=== PATIENT | male | born 1935 | race Caucasian/White ===

== ENCOUNTER 2018-11-09 15:59 | Inpatient (IN) ==
[2018-11-09] MEDS ORDERED: ASPIRIN 325 MG TABLET PO STA (16:35)
[2018-11-09 16:49] LABS: Basophils % 0.5 % (0.0-0.8); Eosinophils # 0.1 10*3/uL (0.0-0.87); Eosinophils % 1.7 % (0.00-10.9); Hematocrit 33.9 VOL% (42.0-52.0); Hemoglobin 11.4 GM/DL (14.0-18.0); Immature Granulocytes % 0.4 %; Immature Granulocytes Absolute 0.03 #; Lymphocytes # 2.2 10*3/uL (1.4-4.0); Lymphocytes % 27.9 % (21.2-54.2); Mean Corpuscular HGB Conc 33.6 GM/DL (32-36); Mean Corpuscular Volume 97.1 FL (87-102); Monocytes % 8.6 % (1.7-12.7); Neutrophils % 60.9 % (38.7-73.9); Platelet Count 280 T/CUMM (130-400); Red Blood Count 3.49 MC/CUMM (3.8-5.5); Red Cell Distribution Width 12.6 % (9.3-17.3); White Blood Count 7.8 T/CUMM (4-12)
[2018-11-09 16:56] LABS: PT Patient Result 10.6 SECS
[2018-11-09 17:25] LABS: Albumin 3.3 G/DL (3.4-5.0); Calcium 9.8 MG/DL (8.5-10.1); Osmolality,Calculated 286.1 MOS/KG (273-304); Thyroid Stimulating Hormone 3.27 uIU/ml (0.358-3.74); Total Protein 8.4 G/DL (6.4-8.3)
[2018-11-09] MEDS ORDERED: MOMETASONE 0.1% OINT 15 GM TUBE TOP PRN (19:55)
[2018-11-09] MEDS ORDERED: ACETAMINOPHEN 325 MG TABLET PO PRN (19:55)
[2018-11-09] MEDS ORDERED: traMADol 50 MG TABLET PO PRN (19:55)
[2018-11-09] MEDS ORDERED: hydrOXYzine HCL 25 MG TABLET PO PRN (19:55)
[2018-11-09] MEDS ORDERED: ONDANSETRON 4 MG/2 ML VIAL IV PRN (19:55)
[2018-11-09] MEDS ORDERED: ALBUTEROL 2.5 MG/3 ML NEB RESP TX PRN (19:55)
[2018-11-09 21:34] LABS: Albumin 2.8 G/DL (3.4-5.0); Bilirubin,Total 0.9 MG/DL (0.2-1.0); Calcium 8.8 MG/DL (8.5-10.1); Osmolality,Calculated 284.3 MOS/KG (273-304); Total Protein 7.1 G/DL (6.4-8.3)
[2018-11-09] MEDS: SODIUM CHLORIDE 0.9% 1,000 ML IV SCH (21:35)
[2018-11-09] MEDS: GABAPENTIN 600 MG TABLET PO SCH (21:36)
[2018-11-09] MEDS: NABUMETONE 500 MG TABLET PO SCH (21:36)
[2018-11-09] MEDS: DOCUSATE SODIUM 100 MG CAPSULE PO SCH (21:36)
[2018-11-09] MEDS: PREGABALIN 75 MG CAPSULE PO SCH (21:36)
[2018-11-09] MEDS: DONEPEZIL 10 MG TABLET PO SCH ×2 (21:36→21:37)
[2018-11-09] MEDS: DIPYRIDAMOLE 25 MG TABLET PO SCH (21:37)
[2018-11-09] MEDS: NIACIN 500 MG TABLET PO SCH (21:39)
[2018-11-09] MEDS: MEMANTINE 10 MG TABLET PO SCH (21:39)
[2018-11-10 05:07] LABS: Basophils % 0.4 % (0.0-0.8); Eosinophils # 0.2 10*3/uL (0.0-0.87); Eosinophils % 2.6 % (0.00-10.9); Hematocrit 29.5 VOL% (42.0-52.0); Hemoglobin 9.9 GM/DL (14.0-18.0); Immature Granulocytes % 0.4 %; Immature Granulocytes Absolute 0.03 #; Lymphocytes % 27.3 % (21.2-54.2); Mean Corpuscular HGB Conc 33.6 GM/DL (32-36); Mean Corpuscular Volume 97.7 FL (87-102); Mean Platelet Volume 9.4 FL (9.6-12.0); Monocytes % 8.2 % (1.7-12.7); Neutrophils % 61.1 % (38.7-73.9); Platelet Count 239 T/CUMM (130-400); Red Blood Count 3.02 MC/CUMM (3.8-5.5); Red Cell Distribution Width 12.6 % (9.3-17.3); White Blood Count 7.4 T/CUMM (4-12)
[2018-11-10 05:32] LABS: Risk Ratio 2.43; VLDL CHOLESTEROL 11.6 MG/DL
[2018-11-10] MEDS ORDERED: MAGNESIUM SULF RIDER 2 GM in PREMIX 1 EACH IV PRN (08:27)
[2018-11-10] MEDS ORDERED: ASPIRIN EC 81 MG TABLET PO SCH (09:00)
[2018-11-10] MEDS: DIPYRIDAMOLE 25 MG TABLET PO SCH ×2 (10:05→21:11)
[2018-11-10] MEDS: DONEPEZIL 10 MG TABLET PO SCH ×3 (10:06→21:12)
[2018-11-10] MEDS: ACYCLOVIR 200 MG CAPSULE PO SCH (10:06)
[2018-11-10] MEDS: CITALOPRAM 20 MG TABLET PO SCH (10:06)
[2018-11-10] MEDS: PREGABALIN 75 MG CAPSULE PO SCH ×2 (10:06→21:10)
[2018-11-10] MEDS: MEMANTINE 10 MG TABLET PO SCH ×2 (10:07→21:10)
[2018-11-10] MEDS: POTASSIUM CHLORIDE 10 MEQ TABLET PO SCH ×2 (10:07→17:43)
[2018-11-10] MEDS: GABAPENTIN 600 MG TABLET PO SCH ×4 (10:07→21:10)
[2018-11-10] MEDS: NABUMETONE 500 MG TABLET PO SCH ×2 (10:07→21:10)
[2018-11-10] MEDS: DULoxetine 30 MG CAPSULE PO SCH (10:07)
[2018-11-10] MEDS: ASPIRIN EC 81 MG TABLET PO SCH (10:07)
[2018-11-10] MEDS: DOCUSATE SODIUM 100 MG CAPSULE PO SCH ×2 (10:07→21:10)
[2018-11-10] MEDS: INDAPAMIDE 2.5 MG TABLET PO SCH (10:25)
[2018-11-10] MEDS: POTASSIUM CHLORIDE RIDER 10 MEQ in PREMIX 1 EACH IV SCH ×2 (10:25→12:42)
[2018-11-10] MEDS: PANTOPRAZOLE 40 MG TABLET PO SCH (10:26)
[2018-11-10] MEDS: SIMVASTATIN 20 MG TABLET PO SCH (10:26)
[2018-11-10 13:02] LABS: Apearance,Urine Slightly Hazy (Clear); Bilirubin,Urine Negative (Negative); Blood, Urine Negative (Negative); Glucose,Urine (UA) Negative (Negative); Ketones,Urine Negative (Negative); Mucus,Urine Occasional /LPF (Occasional); Nitrite,Urine Negative (Negative); Protein,Urine Negative; RBC,Urine 1 /HPF (0-4); Squamous Epithelial Cell,Urine Occasional /HPF (0-10); Urine Color Yellow (Yellow); Urine Specific Gravity 1.014 (1.001-1.035); Urine Urobilinogen < 2.0 EU/DL (0.2-1.0); WBC,Urine 1 /HPF (0-6)
[2018-11-10] MEDS: HALOPERIDOL 5 MG/ML AMP IM PRN (21:08)
[2018-11-10] MEDS: POTASSIUM CHLORIDE IV SCH (21:13)
[2018-11-10] MEDS: MAGNESIUM SULF IV SCH (21:13)
[2018-11-10] MEDS: SODIUM CHLORIDE 0.9% IV SCH (21:13)
[2018-11-10] MEDS: NIACIN 500 MG TABLET PO SCH (21:15)
[2018-11-10] MEDS: SODIUM CHLORIDE 0.9% 1,000 ML IV SCH (21:16)
[2018-11-11] MEDS: HALOPERIDOL 5 MG/ML AMP IM PRN (01:12)
[2018-11-11 05:14] LABS: Basophils # 0.1 10*3/uL (0.0-0.2); Basophils % 0.7 % (0.0-0.8); Eosinophils # 0.3 10*3/uL (0.0-0.87); Eosinophils % 3.6 % (0.00-10.9); Hematocrit 33.6 VOL% (42.0-52.0); Hemoglobin 11.3 GM/DL (14.0-18.0); Immature Granulocytes % 0.2 %; Immature Granulocytes Absolute 0.02 #; Lymphocytes # 3.4 10*3/uL (1.4-4.0); Lymphocytes % 39.3 % (21.2-54.2); Mean Corpuscular HGB Conc 33.6 GM/DL (32-36); Mean Corpuscular Volume 97.7 FL (87-102); Mean Platelet Volume 9.5 FL (9.6-12.0); Monocytes % 7.6 % (1.7-12.7); Neutrophils % 48.6 % (38.7-73.9); Platelet Count 271 T/CUMM (130-400); Red Blood Count 3.44 MC/CUMM (3.8-5.5); Red Cell Distribution Width 12.6 % (9.3-17.3); White Blood Count 8.7 T/CUMM (4-12)
[2018-11-11 05:48] LABS: Bilirubin,Total 0.7 MG/DL (0.2-1.0); Calcium 9.4 MG/DL (8.5-10.1); Osmolality,Calculated 282.4 MOS/KG (273-304); Total Protein 7.8 G/DL (6.4-8.3)
[2018-11-11] MEDS: NABUMETONE 500 MG TABLET PO SCH ×2 (09:14→22:34)
[2018-11-11] MEDS: CITALOPRAM 20 MG TABLET PO SCH (09:14)
[2018-11-11] MEDS: DOCUSATE SODIUM 100 MG CAPSULE PO SCH ×2 (09:15→22:35)
[2018-11-11] MEDS: GABAPENTIN 600 MG TABLET PO SCH ×4 (09:15→22:33)
[2018-11-11] MEDS: POTASSIUM CHLORIDE 10 MEQ TABLET PO SCH ×2 (09:15→16:56)
[2018-11-11] MEDS: ACYCLOVIR 200 MG CAPSULE PO SCH (09:15)
[2018-11-11] MEDS: MEMANTINE 10 MG TABLET PO SCH ×2 (09:16→22:35)
[2018-11-11] MEDS: ASPIRIN EC 81 MG TABLET PO SCH (09:16)
[2018-11-11] MEDS: PANTOPRAZOLE 40 MG TABLET PO SCH (09:16)
[2018-11-11] MEDS: DIPYRIDAMOLE 25 MG TABLET PO SCH (09:16)
[2018-11-11] MEDS: DULoxetine 30 MG CAPSULE PO SCH (09:16)
[2018-11-11] MEDS: INDAPAMIDE 2.5 MG TABLET PO SCH (09:16)
[2018-11-11] MEDS: SIMVASTATIN 20 MG TABLET PO SCH (09:16)
[2018-11-11] MEDS: PREGABALIN 75 MG CAPSULE PO SCH ×2 (09:16→22:36)
[2018-11-11] MEDS: DONEPEZIL 10 MG TABLET PO SCH ×3 (09:16→22:45)
[2018-11-11] MEDS ORDERED: LORazepam 2 MG/1 ML VIAL IV ONE (09:41)
[2018-11-11] MEDS: SODIUM CHLORIDE 0.9% IV SCH ×2 (11:41→22:47)
[2018-11-11] MEDS: POTASSIUM CHLORIDE IV SCH ×2 (11:41→22:47)
[2018-11-11] MEDS: MAGNESIUM SULF IV SCH ×2 (11:41→22:47)
[2018-11-11] MEDS ORDERED: DIPYRIDAMOLE 50 MG TABLET PO SCH (21:00)
[2018-11-11] MEDS: NIACIN 500 MG TABLET PO SCH (22:35)
[2018-11-12] MEDS: SODIUM CHLORIDE 0.9% IV SCH ×3 (06:41→22:54)
[2018-11-12] MEDS: POTASSIUM CHLORIDE IV SCH ×3 (06:41→22:54)
[2018-11-12] MEDS: MAGNESIUM SULF IV SCH ×3 (06:41→22:54)
[2018-11-12 06:51] LABS: Basophils % 0.5 % (0.0-0.8); Eosinophils # 0.1 10*3/uL (0.0-0.87); Eosinophils % 1.4 % (0.00-10.9); Hematocrit 32.4 VOL% (42.0-52.0); Immature Granulocytes % 0.4 %; Immature Granulocytes Absolute 0.03 #; Lymphocytes % 25.4 % (21.2-54.2); Mean Corpuscular Volume 97.6 FL (87-102); Mean Platelet Volume 9.6 FL (9.6-12.0); Monocytes % 7.4 % (1.7-12.7); Neutrophils % 64.9 % (38.7-73.9); Platelet Count 259 T/CUMM (130-400); Red Blood Count 3.32 MC/CUMM (3.8-5.5); Red Cell Distribution Width 12.7 % (9.3-17.3); White Blood Count 7.8 T/CUMM (4-12)
[2018-11-12 07:20] LABS: Calcium 9.2 MG/DL (8.5-10.1); Osmolality,Calculated 283.3 MOS/KG (273-304)
[2018-11-12] MEDS: ASPIRIN EC 81 MG TABLET PO SCH (09:41)
[2018-11-12] MEDS: CITALOPRAM 20 MG TABLET PO SCH (09:41)
[2018-11-12] MEDS: PREGABALIN 75 MG CAPSULE PO SCH ×2 (09:41→21:25)
[2018-11-12] MEDS: DOCUSATE SODIUM 100 MG CAPSULE PO SCH ×2 (09:42→21:30)
[2018-11-12] MEDS: GABAPENTIN 600 MG TABLET PO SCH ×4 (09:42→21:29)
[2018-11-12] MEDS: PANTOPRAZOLE 40 MG TABLET PO SCH (09:42)
[2018-11-12] MEDS: INDAPAMIDE 2.5 MG TABLET PO SCH (09:42)
[2018-11-12] MEDS: NABUMETONE 500 MG TABLET PO SCH ×2 (09:42→21:28)
[2018-11-12] MEDS: ACYCLOVIR 200 MG CAPSULE PO SCH (09:42)
[2018-11-12] MEDS: DULoxetine 30 MG CAPSULE PO SCH (09:42)
[2018-11-12] MEDS: SIMVASTATIN 20 MG TABLET PO SCH (09:42)
[2018-11-12] MEDS: DONEPEZIL 10 MG TABLET PO SCH ×3 (09:42→21:30)
[2018-11-12] MEDS: MEMANTINE 10 MG TABLET PO SCH ×2 (09:45→21:27)
[2018-11-12] MEDS: DIPYRIDAMOLE 25 MG TABLET PO SCH ×2 (09:45→21:25)
[2018-11-12] MEDS: POTASSIUM CHLORIDE 10 MEQ TABLET PO SCH ×2 (09:45→16:32)
[2018-11-12] MEDS: NIACIN 500 MG TABLET PO SCH (21:28)
[2018-11-13] MEDS: SODIUM CHLORIDE 0.9% IV SCH ×2 (02:18→15:37)
[2018-11-13] MEDS: MAGNESIUM SULF IV SCH ×2 (02:18→15:37)
[2018-11-13] MEDS: POTASSIUM CHLORIDE IV SCH ×2 (02:18→15:37)
[2018-11-13 06:24] LABS: Calcium 9.6 MG/DL (8.5-10.1); Osmolality,Calculated 273.8 MOS/KG (273-304)
[2018-11-13] MEDS: DULoxetine 30 MG CAPSULE PO SCH (09:14)
[2018-11-13] MEDS: DIPYRIDAMOLE 25 MG TABLET PO SCH ×2 (09:14→22:34)
[2018-11-13] MEDS: ASPIRIN EC 81 MG TABLET PO SCH (09:14)
[2018-11-13] MEDS: INDAPAMIDE 2.5 MG TABLET PO SCH (09:14)
[2018-11-13] MEDS: POTASSIUM CHLORIDE 10 MEQ TABLET PO SCH ×2 (09:15→17:14)
[2018-11-13] MEDS: MEMANTINE 10 MG TABLET PO SCH ×2 (09:15→22:35)
[2018-11-13] MEDS: DONEPEZIL 10 MG TABLET PO SCH ×3 (09:15→23:40)
[2018-11-13] MEDS: PANTOPRAZOLE 40 MG TABLET PO SCH (09:15)
[2018-11-13] MEDS: GABAPENTIN 600 MG TABLET PO SCH ×4 (09:15→22:36)
[2018-11-13] MEDS: CITALOPRAM 20 MG TABLET PO SCH (09:15)
[2018-11-13] MEDS: NABUMETONE 500 MG TABLET PO SCH ×2 (09:15→22:34)
[2018-11-13] MEDS: DOCUSATE SODIUM 100 MG CAPSULE PO SCH ×2 (09:15→22:35)
[2018-11-13] MEDS: PREGABALIN 75 MG CAPSULE PO SCH ×2 (09:16→22:37)
[2018-11-13] MEDS: SIMVASTATIN 20 MG TABLET PO SCH (10:31)
[2018-11-13] MEDS: ACYCLOVIR 200 MG CAPSULE PO SCH (10:31)
[2018-11-13] MEDS: NIACIN 500 MG TABLET PO SCH (22:37)
[2018-11-14] MEDS: MAGNESIUM SULF IV SCH ×2 (06:02→12:41)
[2018-11-14] MEDS: SODIUM CHLORIDE 0.9% IV SCH ×2 (06:02→12:41)
[2018-11-14] MEDS: POTASSIUM CHLORIDE IV SCH ×2 (06:02→12:41)
[2018-11-14] MEDS: CITALOPRAM 20 MG TABLET PO SCH (10:21)
[2018-11-14] MEDS: DONEPEZIL 10 MG TABLET PO SCH ×3 (10:22→22:57)
[2018-11-14] MEDS: ACYCLOVIR 200 MG CAPSULE PO SCH (10:22)
[2018-11-14] MEDS: MEMANTINE 10 MG TABLET PO SCH ×2 (10:22→22:56)
[2018-11-14] MEDS: POTASSIUM CHLORIDE 10 MEQ TABLET PO SCH ×2 (10:22→16:56)
[2018-11-14] MEDS: ASPIRIN EC 81 MG TABLET PO SCH (10:23)
[2018-11-14] MEDS: SIMVASTATIN 20 MG TABLET PO SCH (10:23)
[2018-11-14] MEDS: DIPYRIDAMOLE 25 MG TABLET PO SCH ×2 (10:23→22:55)
[2018-11-14] MEDS: PANTOPRAZOLE 40 MG TABLET PO SCH (10:23)
[2018-11-14] MEDS: GABAPENTIN 600 MG TABLET PO SCH ×4 (10:23→22:55)
[2018-11-14] MEDS: INDAPAMIDE 2.5 MG TABLET PO SCH (10:24)
[2018-11-14] MEDS: NABUMETONE 500 MG TABLET PO SCH ×2 (10:24→22:55)
[2018-11-14] MEDS: DULoxetine 30 MG CAPSULE PO SCH (10:24)
[2018-11-14] MEDS: DOCUSATE SODIUM 100 MG CAPSULE PO SCH ×2 (10:25→22:55)
[2018-11-14] MEDS: PREGABALIN 75 MG CAPSULE PO SCH ×2 (10:25→22:56)
[2018-11-14] MEDS: NIACIN 500 MG TABLET PO SCH (22:55)
[2018-11-15] MEDS: POTASSIUM CHLORIDE IV SCH (05:30)
[2018-11-15] MEDS: MAGNESIUM SULF IV SCH (05:30)
[2018-11-15] MEDS: SODIUM CHLORIDE 0.9% IV SCH (05:30)
[2018-11-15 05:33] LABS: Basophils % 0.4 % (0.0-0.8); Eosinophils # 0.2 10*3/uL (0.0-0.87); Eosinophils % 1.6 % (0.00-10.9); Hematocrit 33.5 VOL% (42.0-52.0); Hemoglobin 11.4 GM/DL (14.0-18.0); Immature Granulocytes Absolute 0.09 #; Lymphocytes # 1.9 10*3/uL (1.4-4.0); Lymphocytes % 20.2 % (21.2-54.2); Mean Corpuscular Volume 97.4 FL (87-102); Mean Platelet Volume 9.8 FL (9.6-12.0); Monocytes % 6.6 % (1.7-12.7); Neutrophils % 70.2 % (38.7-73.9); Platelet Count 274 T/CUMM (130-400); Red Blood Count 3.44 MC/CUMM (3.8-5.5); Red Cell Distribution Width 12.8 % (9.3-17.3); White Blood Count 9.4 T/CUMM (4-12)
[2018-11-15 06:08] LABS: Bilirubin,Total 0.7 MG/DL (0.2-1.0); Calcium 9.4 MG/DL (8.5-10.1); Osmolality,Calculated 274.7 MOS/KG (273-304); Total Protein 7.5 G/DL (6.4-8.3)
[2018-11-15] MEDS: DULoxetine 30 MG CAPSULE PO SCH (09:00)
[2018-11-15] MEDS: MEMANTINE 10 MG TABLET PO SCH ×2 (09:00→20:51)
[2018-11-15] MEDS: NABUMETONE 500 MG TABLET PO SCH ×2 (09:00→20:51)
[2018-11-15] MEDS: ASPIRIN EC 81 MG TABLET PO SCH (09:00)
[2018-11-15] MEDS: CITALOPRAM 20 MG TABLET PO SCH (09:00)
[2018-11-15] MEDS: POTASSIUM CHLORIDE 10 MEQ TABLET PO SCH ×2 (09:00→18:48)
[2018-11-15] MEDS: DIPYRIDAMOLE 25 MG TABLET PO SCH ×2 (09:00→20:52)
[2018-11-15] MEDS: PREGABALIN 75 MG CAPSULE PO SCH ×2 (09:00→20:51)
[2018-11-15] MEDS: ACYCLOVIR 200 MG CAPSULE PO SCH (09:00)
[2018-11-15] MEDS: GABAPENTIN 600 MG TABLET PO SCH ×4 (09:00→20:51)
[2018-11-15] MEDS: DOCUSATE SODIUM 100 MG CAPSULE PO SCH ×2 (09:00→20:50)
[2018-11-15] MEDS: DONEPEZIL 10 MG TABLET PO SCH ×3 (09:00→20:52)
[2018-11-15] MEDS: PANTOPRAZOLE 40 MG TABLET PO SCH (09:00)
[2018-11-15] MEDS: SIMVASTATIN 20 MG TABLET PO SCH (09:00)
[2018-11-15] MEDS: INDAPAMIDE 2.5 MG TABLET PO SCH (09:00)
[2018-11-15] MEDS: NIACIN 500 MG TABLET PO SCH (20:51)
[2018-11-16 03:08] LABS: Basophils % 0.4 % (0.0-0.8); Eosinophils # 0.1 10*3/uL (0.0-0.87); Eosinophils % 1.6 % (0.00-10.9); Hematocrit 32.9 VOL% (42.0-52.0); Hemoglobin 10.7 GM/DL (14.0-18.0); Immature Granulocytes % 0.4 %; Immature Granulocytes Absolute 0.03 #; Lymphocytes # 2.2 10*3/uL (1.4-4.0); Lymphocytes % 25.3 % (21.2-54.2); Mean Corpuscular HGB Conc 32.5 GM/DL (32-36); Mean Corpuscular Volume 98.5 FL (87-102); Mean Platelet Volume 9.7 FL (9.6-12.0); Monocytes % 8.4 % (1.7-12.7); Neutrophils % 63.9 % (38.7-73.9); Platelet Count 279 T/CUMM (130-400); Red Blood Count 3.34 MC/CUMM (3.8-5.5); Red Cell Distribution Width 12.9 % (9.3-17.3); White Blood Count 8.5 T/CUMM (4-12)
[2018-11-16] MEDS: SODIUM CHLORIDE 0.9% IV SCH ×2 (03:38→14:41)
[2018-11-16] MEDS: POTASSIUM CHLORIDE IV SCH ×2 (03:38→14:41)
[2018-11-16] MEDS: MAGNESIUM SULF IV SCH ×2 (03:38→14:41)
[2018-11-16] MEDS: DIPYRIDAMOLE 25 MG TABLET PO SCH ×2 (08:36→22:16)
[2018-11-16] MEDS: GABAPENTIN 600 MG TABLET PO SCH ×4 (08:36→22:08)
[2018-11-16] MEDS: DONEPEZIL 10 MG TABLET PO SCH ×3 (08:37→22:16)
[2018-11-16] MEDS: PREGABALIN 75 MG CAPSULE PO SCH ×2 (08:37→22:08)
[2018-11-16] MEDS: DULoxetine 30 MG CAPSULE PO SCH (08:37)
[2018-11-16] MEDS: CITALOPRAM 20 MG TABLET PO SCH (08:37)
[2018-11-16] MEDS: NABUMETONE 500 MG TABLET PO SCH ×2 (08:37→22:08)
[2018-11-16] MEDS: ASPIRIN EC 81 MG TABLET PO SCH (08:37)
[2018-11-16] MEDS: SIMVASTATIN 20 MG TABLET PO SCH (08:37)
[2018-11-16] MEDS: DOCUSATE SODIUM 100 MG CAPSULE PO SCH ×2 (08:38→22:16)
[2018-11-16] MEDS: POTASSIUM CHLORIDE 10 MEQ TABLET PO SCH ×2 (08:38→18:24)
[2018-11-16] MEDS: ACYCLOVIR 200 MG CAPSULE PO SCH (08:38)
[2018-11-16] MEDS: PANTOPRAZOLE 40 MG TABLET PO SCH (08:38)
[2018-11-16] MEDS: MEMANTINE 10 MG TABLET PO SCH ×2 (08:38→22:08)
[2018-11-16] MEDS: INDAPAMIDE 2.5 MG TABLET PO SCH (08:39)
[2018-11-16] MEDS ORDERED: TUBERCULIN SKIN TEST 0.1 ML SYRINGE INTRADERM ONE (13:30)
[2018-11-16] MEDS: NIACIN 500 MG TABLET PO SCH (22:08)
[2018-11-17] MEDS: SODIUM CHLORIDE 0.9% IV SCH ×2 (03:46→21:41)
[2018-11-17] MEDS: MAGNESIUM SULF IV SCH ×2 (03:46→21:41)
[2018-11-17] MEDS: POTASSIUM CHLORIDE IV SCH ×2 (03:46→21:41)
[2018-11-17 06:21] LABS: Basophils % 0.7 % (0.0-0.8); Eosinophils # 0.2 10*3/uL (0.0-0.87); Eosinophils % 3.2 % (0.00-10.9); Hematocrit 27.8 VOL% (42.0-52.0); Hemoglobin 9.1 GM/DL (14.0-18.0); Immature Granulocytes % 0.2 %; Immature Granulocytes Absolute 0.01 #; Lymphocytes # 1.8 10*3/uL (1.4-4.0); Mean Corpuscular HGB Conc 32.7 GM/DL (32-36); Mean Corpuscular Volume 98.9 FL (87-102); Mean Platelet Volume 10.1 FL (9.6-12.0); Monocytes % 9.2 % (1.7-12.7); Neutrophils % 56.7 % (38.7-73.9); Platelet Count 244 T/CUMM (130-400); Red Blood Count 2.81 MC/CUMM (3.8-5.5); White Blood Count 5.9 T/CUMM (4-12)
[2018-11-17 06:38] LABS: Calcium 8.8 MG/DL (8.5-10.1); Osmolality,Calculated 280.3 MOS/KG (273-304)
[2018-11-17] MEDS: CITALOPRAM 20 MG TABLET PO SCH (09:01)
[2018-11-17] MEDS: PREGABALIN 75 MG CAPSULE PO SCH ×2 (09:01→21:40)
[2018-11-17] MEDS: DONEPEZIL 10 MG TABLET PO SCH ×3 (09:01→21:40)
[2018-11-17] MEDS: GABAPENTIN 600 MG TABLET PO SCH ×4 (09:01→21:40)
[2018-11-17] MEDS: DIPYRIDAMOLE 25 MG TABLET PO SCH ×2 (09:01→21:40)
[2018-11-17] MEDS: ASPIRIN EC 81 MG TABLET PO SCH (09:01)
[2018-11-17] MEDS: DULoxetine 30 MG CAPSULE PO SCH (09:01)
[2018-11-17] MEDS: NABUMETONE 500 MG TABLET PO SCH ×2 (09:02→21:39)
[2018-11-17] MEDS: ACYCLOVIR 200 MG CAPSULE PO SCH (09:02)
[2018-11-17] MEDS: POTASSIUM CHLORIDE 10 MEQ TABLET PO SCH ×2 (09:02→17:14)
[2018-11-17] MEDS: MEMANTINE 10 MG TABLET PO SCH ×2 (09:02→21:41)
[2018-11-17] MEDS: DOCUSATE SODIUM 100 MG CAPSULE PO SCH ×2 (09:02→21:40)
[2018-11-17] MEDS: SIMVASTATIN 20 MG TABLET PO SCH (09:02)
[2018-11-17] MEDS: PANTOPRAZOLE 40 MG TABLET PO SCH (09:03)
[2018-11-17] MEDS: INDAPAMIDE 2.5 MG TABLET PO SCH (09:03)
[2018-11-17] MEDS: NIACIN 500 MG TABLET PO SCH (21:39)
[2018-11-18] MEDS: POTASSIUM CHLORIDE IV SCH (02:50)
[2018-11-18] MEDS: MAGNESIUM SULF IV SCH (02:50)
[2018-11-18] MEDS: SODIUM CHLORIDE 0.9% IV SCH (02:50)
[2018-11-18 05:38] LABS: Basophils % 0.5 % (0.0-0.8); Eosinophils # 0.2 10*3/uL (0.0-0.87); Eosinophils % 3.1 % (0.00-10.9); Hematocrit 29.1 VOL% (42.0-52.0); Hemoglobin 9.9 GM/DL (14.0-18.0); Immature Granulocytes % 0.3 %; Immature Granulocytes Absolute 0.02 #; Lymphocytes # 2.4 10*3/uL (1.4-4.0); Lymphocytes % 31.6 % (21.2-54.2); Mean Corpuscular Volume 98.3 FL (87-102); Monocytes % 9.2 % (1.7-12.7); Neutrophils % 55.3 % (38.7-73.9); Platelet Count 241 T/CUMM (130-400); Red Blood Count 2.96 MC/CUMM (3.8-5.5); White Blood Count 7.5 T/CUMM (4-12)
[2018-11-18 05:45] LABS: Calcium 9.3 MG/DL (8.5-10.1); Osmolality,Calculated 281.3 MOS/KG (273-304)
[2018-11-18] MEDS: CITALOPRAM 20 MG TABLET PO SCH (09:15)
[2018-11-18] MEDS: DONEPEZIL 10 MG TABLET PO SCH (09:15)
[2018-11-18] MEDS: DULoxetine 30 MG CAPSULE PO SCH (09:15)
[2018-11-18] MEDS: ASPIRIN EC 81 MG TABLET PO SCH (09:15)
[2018-11-18] MEDS: ACYCLOVIR 200 MG CAPSULE PO SCH (09:15)
[2018-11-18] MEDS: SIMVASTATIN 20 MG TABLET PO SCH (09:16)
[2018-11-18] MEDS: NABUMETONE 500 MG TABLET PO SCH (09:16)
[2018-11-18] MEDS: POTASSIUM CHLORIDE 10 MEQ TABLET PO SCH (09:16)
[2018-11-18] MEDS: INDAPAMIDE 2.5 MG TABLET PO SCH (09:16)
[2018-11-18] MEDS: MEMANTINE 10 MG TABLET PO SCH (09:16)
[2018-11-18] MEDS: DOCUSATE SODIUM 100 MG CAPSULE PO SCH (09:16)
[2018-11-18] MEDS: GABAPENTIN 600 MG TABLET PO SCH ×2 (09:16→12:42)
[2018-11-18] MEDS: DIPYRIDAMOLE 25 MG TABLET PO SCH (09:16)
[2018-11-18] MEDS: PANTOPRAZOLE 40 MG TABLET PO SCH (09:16)
[2018-11-18] MEDS: PREGABALIN 75 MG CAPSULE PO SCH (09:27)
[2018-11-18 12:28] VITALS: BP 138/68
== END 2018-11-18 15:14 | DRG 884 ==
LOC: N.ED 15:59 → N.EDINP 15:59 → N.TELEN 18:25
PROVIDERS: ADMIT Family Medicine; ATTEND Family Medicine

== ENCOUNTER 2018-12-13 09:23 | Inpatient (IN) ==
[2018-12-13] MEDS ORDERED: PANTOPRAZOLE 40 MG VIAL IV STA (09:45)
[2018-12-13 10:30] LABS: Basophils % 0.5 % (0.0-0.8); Hematocrit 42.8 VOL% (42.0-52.0); Hemoglobin 14.1 GM/DL (14.0-18.0); Immature Granulocytes % 0.3 %; Immature Granulocytes Absolute 0.02 #; Lymphocytes # 0.5 10*3/uL (1.4-4.0); Lymphocytes % 7.7 % (21.2-54.2); Mean Corpuscular HGB Conc 32.9 GM/DL (32-36); Mean Corpuscular Volume 103.4 FL (87-102); Mean Platelet Volume 10.1 FL (9.6-12.0); Monocytes % 6.7 % (1.7-12.7); Neutrophils % 84.8 % (38.7-73.9); Platelet Count 216 T/CUMM (130-400); Red Blood Count 4.14 MC/CUMM (3.8-5.5); Red Cell Distribution Width 15.1 % (9.3-17.3); White Blood Count 6.5 T/CUMM (4-12)
[2018-12-13 10:40] LABS: PT Patient Result 11.1 SECS (9.6-12.2)
[2018-12-13 10:52] LABS: Albumin 3.3 G/DL (3.4-5.0); Bilirubin,Total 0.9 MG/DL (0.2-1.0); Osmolality,Calculated 287.7 MOS/KG (273-304); Total Protein 8.6 G/DL (6.4-8.3)
[2018-12-13 10:53] LABS: Band Neutrophils 15 % (0-10); Hypochromasia Slight; Lymphocytes 6 % (20-55); Platelet Estimate Adequate; Segmented Neutrophils 71 % (50-85); Total Cells Counted 100
[2018-12-13] MEDS ORDERED: metroNIDAZOLE INJ 500 MG in PREMIX 1 EACH IV STA (11:41)
[2018-12-13] MEDS ORDERED: PIPERACILLIN/TAZOBACTAM 3,375 MG in SODIUM CHLORIDE 0.9% 100 ML IV STA (11:41)
[2018-12-13] MEDS ORDERED: ACETAMINOPHEN 325 MG TABLET PO PRN (11:41)
[2018-12-13] MEDS ORDERED: SODIUM CHLORIDE 0.9% 1,000 ML IV SCH (12:00)
[2018-12-13] MEDS ORDERED: SODIUM CHLORIDE 0.9% 1,000 ML IV STA (12:04)
[2018-12-13] MEDS: ONDANSETRON 4 MG/2 ML VIAL IV PRN (12:37)
[2018-12-13] MEDS ORDERED: INFLUENZA VIRUS VACCINE 0.5 ML SYRINGE IM ONE (13:42)
[2018-12-13] MEDS ORDERED: metroNIDAZOLE INJ 500 MG in PREMIX 1 EACH IV SCH (15:30)
[2018-12-13] MEDS ORDERED: PIPERACILLIN/TAZOBACTAM 3,375 MG in SODIUM CHLORIDE 0.9% 100 ML IV SCH (15:30)
[2018-12-13 17:36] LABS: Hematocrit 31.7 VOL% (42.0-52.0)
[2018-12-13 17:48] LABS: Hemoglobin 10.6 GM/DL (14.0-18.0)
[2018-12-13] MEDS ORDERED: hydrOXYzine HCL 25 MG TABLET PO PRN (18:25)
[2018-12-13] MEDS: MAGNESIUM SULF INJ 2 GM in SODIUM CHLORIDE 0.9% 1,000 ML IV SCH (20:51)
[2018-12-13] MEDS: metroNIDAZOLE INJ 500 MG in PREMIX 1 EACH IV SCH (20:53)
[2018-12-13] MEDS: DONEPEZIL 10 MG TABLET PO SCH (20:54)
[2018-12-13] MEDS: MEMANTINE 10 MG TABLET PO SCH (20:54)
[2018-12-13] MEDS: SIMVASTATIN 20 MG TABLET PO SCH (20:54)
[2018-12-13] MEDS: PREGABALIN 75 MG CAPSULE PO SCH (20:54)
[2018-12-13] MEDS: DOCUSATE SODIUM 100 MG CAPSULE PO SCH ×2 (20:54→20:55)
[2018-12-13] MEDS: PIPERACILLIN/TAZOBACTAM 3,375 MG in SODIUM CHLORIDE 0.9% 100 ML IV SCH (22:05)
[2018-12-14] MEDS: metroNIDAZOLE INJ 500 MG in PREMIX 1 EACH IV SCH ×3 (04:15→20:46)
[2018-12-14] MEDS: MAGNESIUM SULF INJ 2 GM in SODIUM CHLORIDE 0.9% 1,000 ML IV SCH (04:38)
[2018-12-14] MEDS: PIPERACILLIN/TAZOBACTAM 3,375 MG in SODIUM CHLORIDE 0.9% 100 ML IV SCH ×2 (04:38→15:38)
[2018-12-14 05:51] LABS: Basophils % 0.2 % (0.0-0.8); Hematocrit 32.8 VOL% (42.0-52.0); Hemoglobin 10.5 GM/DL (14.0-18.0); Immature Granulocytes % 0.5 %; Immature Granulocytes Absolute 0.04 #; Mean Corpuscular Volume 103.5 FL (87-102); Mean Platelet Volume 10.3 FL (9.6-12.0); Monocytes % 5.6 % (1.7-12.7); Neutrophils % 81.7 % (38.7-73.9); Platelet Count 172 T/CUMM (130-400); Red Blood Count 3.17 MC/CUMM (3.8-5.5); White Blood Count 8.2 T/CUMM (4-12)
[2018-12-14 06:12] LABS: Albumin 2.3 G/DL (3.4-5.0); Bilirubin,Total 0.9 MG/DL (0.2-1.0); Calcium 7.9 MG/DL (8.5-10.1); Osmolality,Calculated 288.5 MOS/KG (273-304); Thyroid Stimulating Hormone 1.09 uIU/ml (0.358-3.74); Total Protein 6.4 G/DL (6.4-8.3)
[2018-12-14] MEDS: MAGNESIUM SULF INJ 2 GM, POTASSIUM CHLORIDE INJ 20 MEQ in SODIUM CHLORIDE 0.9% 1,000 ML IV SCH ×2 (08:43→16:58)
[2018-12-14] MEDS: POTASSIUM CHLORIDE RIDER 10 MEQ in PREMIX 1 EACH IV SCH ×2 (08:50→10:09)
[2018-12-14] MEDS: PANTOPRAZOLE 40 MG TABLET PO SCH (08:59)
[2018-12-14] MEDS: CITALOPRAM 20 MG TABLET PO SCH (08:59)
[2018-12-14] MEDS: DOCUSATE SODIUM 100 MG CAPSULE PO SCH ×2 (08:59→20:47)
[2018-12-14] MEDS: MEMANTINE 10 MG TABLET PO SCH ×2 (08:59→20:47)
[2018-12-14] MEDS: PREGABALIN 75 MG CAPSULE PO SCH ×2 (08:59→20:47)
[2018-12-14] MEDS: DULoxetine 30 MG CAPSULE PO SCH (08:59)
[2018-12-14] MEDS: ONDANSETRON 4 MG/2 ML VIAL IV PRN (10:08)
[2018-12-14] MEDS: SIMVASTATIN 20 MG TABLET PO SCH (20:47)
[2018-12-14] MEDS: DONEPEZIL 10 MG TABLET PO SCH (20:47)
[2018-12-15] MEDS: PIPERACILLIN/TAZOBACTAM 3,375 MG in SODIUM CHLORIDE 0.9% 100 ML IV SCH ×3 (02:14→18:44)
[2018-12-15] MEDS: MAGNESIUM SULF INJ 2 GM, POTASSIUM CHLORIDE INJ 20 MEQ in SODIUM CHLORIDE 0.9% 1,000 ML IV SCH ×3 (02:15→19:41)
[2018-12-15 05:10] LABS: Basophils % 0.2 % (0.0-0.8); Eosinophils % 0.1 % (0.00-10.9); Hematocrit 29.1 VOL% (42.0-52.0); Hemoglobin 9.7 GM/DL (14.0-18.0); Immature Granulocytes % 0.5 %; Immature Granulocytes Absolute 0.04 #; Lymphocytes # 1.2 10*3/uL (1.4-4.0); Lymphocytes % 13.3 % (21.2-54.2); Mean Corpuscular HGB Conc 33.3 GM/DL (32-36); Mean Platelet Volume 10.3 FL (9.6-12.0); Monocytes % 7.8 % (1.7-12.7); Neutrophils % 78.1 % (38.7-73.9); Platelet Count 173 T/CUMM (130-400); Red Blood Count 2.88 MC/CUMM (3.8-5.5); Red Cell Distribution Width 14.6 % (9.3-17.3); White Blood Count 8.8 T/CUMM (4-12)
[2018-12-15] MEDS: metroNIDAZOLE INJ 500 MG in PREMIX 1 EACH IV SCH ×3 (05:30→20:37)
[2018-12-15 05:37] LABS: Band Neutrophils 1 % (0-10); Hypochromasia Slight; Lymphocytes 14 % (20-55); Segmented Neutrophils 79 % (50-85); Total Cells Counted 100
[2018-12-15 05:38] LABS: Macrocytosis Slight; Platelet Estimate Adequate
[2018-12-15 05:39] LABS: Atypical Lymphocytes Few
[2018-12-15 05:40] LABS: Albumin 2.1 G/DL (3.4-5.0); Bilirubin,Total 0.7 MG/DL (0.2-1.0); Calcium 8.2 MG/DL (8.5-10.1); Osmolality,Calculated 283.4 MOS/KG (273-304); Total Protein 6.1 G/DL (6.4-8.3)
[2018-12-15] MEDS: CITALOPRAM 20 MG TABLET PO SCH (09:08)
[2018-12-15] MEDS: DOCUSATE SODIUM 100 MG CAPSULE PO SCH ×2 (09:08→20:44)
[2018-12-15] MEDS: DULoxetine 30 MG CAPSULE PO SCH (09:08)
[2018-12-15] MEDS: PANTOPRAZOLE 40 MG TABLET PO SCH (09:08)
[2018-12-15] MEDS: MEMANTINE 10 MG TABLET PO SCH ×2 (09:08→20:37)
[2018-12-15] MEDS: PREGABALIN 75 MG CAPSULE PO SCH ×2 (09:08→20:37)
[2018-12-15] MEDS: ONDANSETRON 4 MG/2 ML VIAL IV PRN (18:48)
[2018-12-15] MEDS: DONEPEZIL 10 MG TABLET PO SCH (20:37)
[2018-12-15] MEDS: SIMVASTATIN 20 MG TABLET PO SCH (20:37)
[2018-12-16] MEDS: MAGNESIUM SULF INJ 2 GM, POTASSIUM CHLORIDE INJ 20 MEQ in SODIUM CHLORIDE 0.9% 1,000 ML IV SCH (02:51)
[2018-12-16] MEDS: PIPERACILLIN/TAZOBACTAM 3,375 MG in SODIUM CHLORIDE 0.9% 100 ML IV SCH (03:05)
[2018-12-16 04:23] LABS: Basophils % 0.3 % (0.0-0.8); Eosinophils # 0.1 10*3/uL (0.0-0.87); Eosinophils % 0.6 % (0.00-10.9); Hematocrit 27.5 VOL% (42.0-52.0); Hemoglobin 9.1 GM/DL (14.0-18.0); Immature Granulocytes % 0.4 %; Immature Granulocytes Absolute 0.04 #; Lymphocytes # 1.3 10*3/uL (1.4-4.0); Mean Corpuscular HGB Conc 33.1 GM/DL (32-36); Mean Corpuscular Volume 100.7 FL (87-102); Mean Platelet Volume 9.9 FL (9.6-12.0); Monocytes % 7.3 % (1.7-12.7); Neutrophils % 79.4 % (38.7-73.9); Platelet Count 168 T/CUMM (130-400); Red Blood Count 2.73 MC/CUMM (3.8-5.5); Red Cell Distribution Width 14.7 % (9.3-17.3); White Blood Count 11.1 T/CUMM (4-12)
[2018-12-16 04:49] LABS: Hypochromasia 1+; Platelet Estimate Adequate
[2018-12-16 04:50] LABS: Macrocytosis Slight
[2018-12-16 05:00] LABS: Albumin 2.1 G/DL (3.4-5.0); Bilirubin,Total 0.6 MG/DL (0.2-1.0); Calcium 8.3 MG/DL (8.5-10.1); Osmolality,Calculated 277.5 MOS/KG (273-304); Total Protein 5.8 G/DL (6.4-8.3)
[2018-12-16] MEDS: metroNIDAZOLE INJ 500 MG in PREMIX 1 EACH IV SCH (05:09)
[2018-12-16] MEDS ORDERED: metroNIDAZOLE 500 MG TABLET PO SCH (09:00)
[2018-12-16] MEDS: PREGABALIN 75 MG CAPSULE PO SCH (09:40)
[2018-12-16] MEDS: DOCUSATE SODIUM 100 MG CAPSULE PO SCH (09:41)
[2018-12-16] MEDS: CITALOPRAM 20 MG TABLET PO SCH (09:41)
[2018-12-16] MEDS: DULoxetine 30 MG CAPSULE PO SCH (09:41)
[2018-12-16] MEDS: PANTOPRAZOLE 40 MG TABLET PO SCH (09:41)
[2018-12-16] MEDS: MEMANTINE 10 MG TABLET PO SCH (09:41)
[2018-12-16 11:24] VITALS: BP 140/87
== END 2018-12-16 11:44 | disposition hospice, home (50) | DRG 394 ==
LOC: N.ED 09:23 → N.EDINP 11:40 → N.4E 13:05
PROVIDERS: ADMIT Family Medicine; ATTEND Family Medicine

== ENCOUNTER 2018-12-22 18:01 | Inpatient (IN) ==
[2018-12-22] MEDS ORDERED: SODIUM CHLORIDE 0.9% 1,000 ML IV STA (18:47)
[2018-12-22] MEDS ORDERED: PANTOPRAZOLE 40 MG VIAL IV STA (18:47)
[2018-12-22] MEDS ORDERED: ONDANSETRON 4 MG/2 ML VIAL IV STA (18:47)
[2018-12-22 18:59] LABS: Basophils # 0.1 10*3/uL (0.0-0.2); Basophils % 0.3 % (0.0-0.8); Eosinophils % 0.3 % (0.00-10.9); Hematocrit 27.4 VOL% (42.0-52.0); Hemoglobin 9.5 GM/DL (14.0-18.0); Immature Granulocytes % 0.5 %; Immature Granulocytes Absolute 0.08 #; Lymphocytes # 1.7 10*3/uL (1.4-4.0); Lymphocytes % 10.9 % (21.2-54.2); Mean Corpuscular HGB Conc 34.7 GM/DL (32-36); Mean Corpuscular Volume 98.2 FL (87-102); Mean Platelet Volume 9.9 FL (9.6-12.0); Monocytes % 12.5 % (1.7-12.7); Neutrophils % 75.5 % (38.7-73.9); Platelet Count 365 T/CUMM (130-400); Red Blood Count 2.79 MC/CUMM (3.8-5.5); Red Cell Distribution Width 15.7 % (9.3-17.3); White Blood Count 15.3 T/CUMM (4-12)
[2018-12-22 19:11] LABS: Alanine Aminotransferase 17 U/L (16-61); Albumin 2.2 G/DL (3.4-5.0); Alkaline Phosphatase 104 U/L (45-117); Amylase 30 U/L (25-115); Aspartate Amino Transferase 16 U/L (0-37); Blood Urea Nitrogen 30 MG/DL (7-18); Calcium 8.7 MG/DL (8.5-10.1); Estimated Glom Filtration Rate 24 ML/MIN; Glucose 161 MG/DL (74-106); Osmolality,Calculated 289.3 MOS/KG (273-304); Total Protein 6.6 G/DL (6.4-8.3)
[2018-12-22 19:12] LABS: Troponin I 0.135 NG/ML (0.00-0.045)
[2018-12-22] MEDS ORDERED: POTASSIUM CHLORIDE 20 MEQ TABLET PO STA (19:20)
[2018-12-22] MEDS ORDERED: POTASSIUM BICARB EFFERVESCENT 25 MEQ TABLET PO ONE (20:09)
[2018-12-23] MEDS ORDERED: MOMETASONE 0.1% OINT 15 GM TUBE TOP PRN (00:55)
[2018-12-23] MEDS ORDERED: SODIUM CHLORIDE 0.9% 1,000 ML IV SCH (00:55)
[2018-12-23] MEDS ORDERED: GLUCAGON 1 MG VIAL IM PRN (00:55)
[2018-12-23] MEDS ORDERED: DEXTROSE 50% 25 GM/50 ML VIAL IV PRN (00:55)
[2018-12-23] MEDS ORDERED: MEPERIDINE 25 MG/1 ML VIAL IV PRN (00:55)
[2018-12-23 01:20] LABS: Basophils % 0.2 % (0.0-0.8); Eosinophils % 0.3 % (0.00-10.9); Hematocrit 27.4 VOL% (42.0-52.0); Hemoglobin 9.4 GM/DL (14.0-18.0); Immature Granulocytes % 0.5 %; Immature Granulocytes Absolute 0.06 #; Lymphocytes # 1.4 10*3/uL (1.4-4.0); Mean Corpuscular HGB Conc 34.3 GM/DL (32-36); Mean Corpuscular Volume 97.2 FL (87-102); Mean Platelet Volume 9.6 FL (9.6-12.0); Monocytes % 11.5 % (1.7-12.7); Neutrophils % 76.5 % (38.7-73.9); Platelet Count 341 T/CUMM (130-400); Red Blood Count 2.82 MC/CUMM (3.8-5.5); Red Cell Distribution Width 15.7 % (9.3-17.3); White Blood Count 12.6 T/CUMM (4-12)
[2018-12-23 01:45] LABS: Albumin 2.1 G/DL (3.4-5.0); Bilirubin,Total 1.4 MG/DL (0.2-1.0); Calcium 8.9 MG/DL (8.5-10.1); Total Protein 6.3 G/DL (6.4-8.3)
[2018-12-23 02:02] LABS: Band Neutrophils 2 % (0-10); Lymphocytes 12 % (20-55); Segmented Neutrophils 73 % (50-85); Total Cells Counted 100
[2018-12-23 02:03] LABS: Anisocytosis 1+; Platelet Estimate Adequate
[2018-12-23] MEDS: metroNIDAZOLE INJ 500 MG in PREMIX 1 EACH IV SCH ×3 (02:10→18:27)
[2018-12-23] MEDS: PIPERACILLIN/TAZOBACTAM 3,375 MG in SODIUM CHLORIDE 0.9% 100 ML IV SCH ×2 (03:15→12:51)
[2018-12-23 06:58] LABS: Apearance,Urine CLEAR (Clear); Bilirubin,Urine Negative (Negative); Blood, Urine Negative (Negative); Glucose,Urine (UA) Negative (Negative); Ketones,Urine Negative (Negative); Mucus,Urine Occasional /LPF (Occasional); Nitrite,Urine Negative (Negative); Protein,Urine Negative; RBC,Urine 2 /HPF (0-4); Squamous Epithelial Cell,Urine Occasional /HPF (0-10); Urine Color Amber (Yellow); Urine Specific Gravity 1.015 (1.001-1.035); Urine Urobilinogen < 2.0 EU/DL (0.2-1.0); WBC,Urine 1 /HPF (0-6)
[2018-12-23] MEDS: ACYCLOVIR 200 MG CAPSULE PO SCH (08:48)
[2018-12-23] MEDS: MULTIVITAMIN (BEROCCA) TABLET PO SCH (08:48)
[2018-12-23] MEDS: MEMANTINE 10 MG TABLET PO SCH ×2 (08:48→21:35)
[2018-12-23] MEDS: DULoxetine 30 MG CAPSULE PO SCH (08:49)
[2018-12-23] MEDS: CITALOPRAM 20 MG TABLET PO SCH (08:49)
[2018-12-23] MEDS: ASPIRIN EC 81 MG TABLET PO SCH (08:49)
[2018-12-23] MEDS: PREGABALIN 75 MG CAPSULE PO SCH ×2 (08:49→21:34)
[2018-12-23] MEDS: POTASSIUM CHLORIDE 10 MEQ TABLET PO SCH ×2 (08:49→21:37)
[2018-12-23] MEDS: NABUMETONE 500 MG TABLET PO SCH ×2 (08:49→21:35)
[2018-12-23] MEDS: INDAPAMIDE 2.5 MG TABLET PO SCH (08:49)
[2018-12-23] MEDS: PANTOPRAZOLE 40 MG TABLET PO SCH (08:49)
[2018-12-23] MEDS: DIPYRIDAMOLE 25 MG TABLET PO SCH ×2 (08:50→21:38)
[2018-12-23] MEDS: ENOXAPARIN 30 MG/0.3 ML SYRINGE SUBCUT SCH (08:50)
[2018-12-23] MEDS: DOCUSATE SODIUM 100 MG CAPSULE PO SCH ×2 (08:50→21:35)
[2018-12-23] MEDS: CARBOXYMETHYLCELLULOSE 1% OPH SOLN BOTH EYES SCH ×2 (08:50→21:38)
[2018-12-23] MEDS: SODIUM CHLOR 0.9% KCL 20 MEQ 20 MEQ/1,000 ML BAG IV SCH ×2 (10:27→18:00)
[2018-12-23] MEDS: DONEPEZIL 10 MG TABLET PO SCH (21:35)
[2018-12-23] MEDS: SIMVASTATIN 20 MG TABLET PO SCH (21:38)
[2018-12-23] MEDS: NIACIN 500 MG TABLET PO SCH (21:38)
[2018-12-24] MEDS: metroNIDAZOLE INJ 500 MG in PREMIX 1 EACH IV SCH ×3 (01:01→18:14)
[2018-12-24] MEDS: SODIUM CHLOR 0.9% KCL 20 MEQ 20 MEQ/1,000 ML BAG IV SCH ×4 (01:07→21:01)
[2018-12-24] MEDS: PIPERACILLIN/TAZOBACTAM 3,375 MG in SODIUM CHLORIDE 0.9% 100 ML IV SCH ×2 (02:33→14:42)
[2018-12-24 03:45] LABS: Basophils % 0.4 % (0.0-0.8); Eosinophils # 0.1 10*3/uL (0.0-0.87); Eosinophils % 0.7 % (0.00-10.9); Hematocrit 27.6 VOL% (42.0-52.0); Hemoglobin 9.1 GM/DL (14.0-18.0); Immature Granulocytes % 0.6 %; Immature Granulocytes Absolute 0.06 #; Lymphocytes # 2.4 10*3/uL (1.4-4.0); Lymphocytes % 24.1 % (21.2-54.2); Mean Corpuscular Volume 98.6 FL (87-102); Mean Platelet Volume 9.7 FL (9.6-12.0); Monocytes % 13.2 % (1.7-12.7); Platelet Count 323 T/CUMM (130-400); Red Cell Distribution Width 16.3 % (9.3-17.3); White Blood Count 10.1 T/CUMM (4-12)
[2018-12-24 04:17] LABS: Bilirubin,Total 0.8 MG/DL (0.2-1.0); Calcium 8.5 MG/DL (8.5-10.1)
[2018-12-24 04:23] LABS: Anisocytosis 1+; Platelet Estimate Adequate
[2018-12-24] MEDS: PREGABALIN 75 MG CAPSULE PO SCH ×2 (08:39→20:51)
[2018-12-24] MEDS: INDAPAMIDE 2.5 MG TABLET PO SCH (08:39)
[2018-12-24] MEDS: NABUMETONE 500 MG TABLET PO SCH ×2 (08:39→20:51)
[2018-12-24] MEDS: ENOXAPARIN 30 MG/0.3 ML SYRINGE SUBCUT SCH (08:39)
[2018-12-24] MEDS: PANTOPRAZOLE 40 MG TABLET PO SCH (08:39)
[2018-12-24] MEDS: CITALOPRAM 20 MG TABLET PO SCH (08:39)
[2018-12-24] MEDS: MULTIVITAMIN (BEROCCA) TABLET PO SCH (08:40)
[2018-12-24] MEDS: DIPYRIDAMOLE 25 MG TABLET PO SCH ×2 (08:40→20:49)
[2018-12-24] MEDS: ASPIRIN EC 81 MG TABLET PO SCH (08:40)
[2018-12-24] MEDS: POTASSIUM CHLORIDE 10 MEQ TABLET PO SCH ×2 (08:40→20:49)
[2018-12-24] MEDS: ACYCLOVIR 200 MG CAPSULE PO SCH (08:40)
[2018-12-24] MEDS: MEMANTINE 10 MG TABLET PO SCH ×2 (08:40→20:51)
[2018-12-24] MEDS: DULoxetine 30 MG CAPSULE PO SCH (08:41)
[2018-12-24] MEDS: DOCUSATE SODIUM 100 MG CAPSULE PO SCH ×2 (08:41→20:51)
[2018-12-24] MEDS: CARBOXYMETHYLCELLULOSE 1% OPH SOLN BOTH EYES SCH ×2 (10:18→20:51)
[2018-12-24] MEDS: NIACIN 500 MG TABLET PO SCH (20:49)
[2018-12-24] MEDS: DONEPEZIL 10 MG TABLET PO SCH (20:50)
[2018-12-24] MEDS: SIMVASTATIN 20 MG TABLET PO SCH (20:51)
[2018-12-25] MEDS: metroNIDAZOLE INJ 500 MG in PREMIX 1 EACH IV SCH ×3 (01:28→17:16)
[2018-12-25] MEDS: SODIUM CHLOR 0.9% KCL 20 MEQ 20 MEQ/1,000 ML BAG IV SCH ×4 (03:45→17:16)
[2018-12-25 04:50] LABS: Basophils % 0.4 % (0.0-0.8); Eosinophils # 0.1 10*3/uL (0.0-0.87); Eosinophils % 0.8 % (0.00-10.9); Hematocrit 25.9 VOL% (42.0-52.0); Hemoglobin 8.8 GM/DL (14.0-18.0); Immature Granulocytes % 0.3 %; Immature Granulocytes Absolute 0.02 #; Lymphocytes % 13.6 % (21.2-54.2); Mean Corpuscular Volume 98.5 FL (87-102); Mean Platelet Volume 9.7 FL (9.6-12.0); Monocytes % 12.2 % (1.7-12.7); Neutrophils % 72.7 % (38.7-73.9); Platelet Count 296 T/CUMM (130-400); Red Blood Count 2.63 MC/CUMM (3.8-5.5); Red Cell Distribution Width 16.6 % (9.3-17.3); White Blood Count 7.1 T/CUMM (4-12)
[2018-12-25 05:00] LABS: Calcium 8.4 MG/DL (8.5-10.1); Osmolality,Calculated 286.8 MOS/KG (273-304)
[2018-12-25 06:08] LABS: Band Neutrophils 3 % (0-10); Eosinophils 2 % (0-10); Lymphocytes 11 % (20-55); Platelet Estimate Normal; Segmented Neutrophils 74 % (50-85); Total Cells Counted 100
[2018-12-25 06:09] LABS: Anisocytosis 1+; Hypochromasia 2+; Macrocytosis 1+
[2018-12-25] MEDS: ACYCLOVIR 200 MG CAPSULE PO SCH (08:52)
[2018-12-25] MEDS: DULoxetine 30 MG CAPSULE PO SCH (08:53)
[2018-12-25] MEDS: CITALOPRAM 20 MG TABLET PO SCH (08:53)
[2018-12-25] MEDS: INDAPAMIDE 2.5 MG TABLET PO SCH (08:53)
[2018-12-25] MEDS: MEMANTINE 10 MG TABLET PO SCH ×2 (08:53→20:50)
[2018-12-25] MEDS: DIPYRIDAMOLE 25 MG TABLET PO SCH ×2 (08:53→20:50)
[2018-12-25] MEDS: ENOXAPARIN 30 MG/0.3 ML SYRINGE SUBCUT SCH (08:53)
[2018-12-25] MEDS: POTASSIUM CHLORIDE 10 MEQ TABLET PO SCH ×2 (08:53→20:50)
[2018-12-25] MEDS: PANTOPRAZOLE 40 MG TABLET PO SCH (08:53)
[2018-12-25] MEDS: ASPIRIN EC 81 MG TABLET PO SCH (08:53)
[2018-12-25] MEDS: MULTIVITAMIN (BEROCCA) TABLET PO SCH (08:53)
[2018-12-25] MEDS: NABUMETONE 500 MG TABLET PO SCH ×2 (08:53→20:50)
[2018-12-25] MEDS: PREGABALIN 75 MG CAPSULE PO SCH ×2 (08:53→20:50)
[2018-12-25] MEDS: CARBOXYMETHYLCELLULOSE 1% OPH SOLN BOTH EYES SCH ×2 (09:19→20:51)
[2018-12-25] MEDS: DOCUSATE SODIUM 100 MG CAPSULE PO SCH ×2 (09:19→20:51)
[2018-12-25] MEDS ORDERED: MAGNESIUM SULF RIDER 4 GM in PREMIX 1 EACH IV PRN (12:30)
[2018-12-25] MEDS ORDERED: POTASSIUM CHLORIDE 20 MEQ/15 ML UDCUP PO PRN (12:30)
[2018-12-25] MEDS: POTASSIUM PHOS/SOD PHOS 250 MG TABLET PO SCH ×3 (12:43→20:51)
[2018-12-25] MEDS: SIMVASTATIN 20 MG TABLET PO SCH (20:50)
[2018-12-25] MEDS: DONEPEZIL 10 MG TABLET PO SCH (20:50)
[2018-12-25] MEDS: NIACIN 500 MG TABLET PO SCH (20:50)
[2018-12-26] MEDS: metroNIDAZOLE INJ 500 MG in PREMIX 1 EACH IV SCH ×3 (01:31→17:38)
[2018-12-26] MEDS: SODIUM CHLOR 0.9% KCL 20 MEQ 20 MEQ/1,000 ML BAG IV SCH ×2 (02:35→18:43)
[2018-12-26 05:17] LABS: Calcium 8.4 MG/DL (8.5-10.1)
[2018-12-26] MEDS: CITALOPRAM 20 MG TABLET PO SCH (09:16)
[2018-12-26] MEDS: ENOXAPARIN 30 MG/0.3 ML SYRINGE SUBCUT SCH (09:16)
[2018-12-26] MEDS: POTASSIUM PHOS/SOD PHOS 250 MG TABLET PO SCH ×3 (09:17→17:38)
[2018-12-26] MEDS: MEMANTINE 10 MG TABLET PO SCH (09:17)
[2018-12-26] MEDS: DIPYRIDAMOLE 25 MG TABLET PO SCH (09:17)
[2018-12-26] MEDS: DULoxetine 30 MG CAPSULE PO SCH (09:17)
[2018-12-26] MEDS: CARBOXYMETHYLCELLULOSE 1% OPH SOLN BOTH EYES SCH (09:18)
[2018-12-26] MEDS: ACYCLOVIR 200 MG CAPSULE PO SCH (09:18)
[2018-12-26] MEDS: INDAPAMIDE 2.5 MG TABLET PO SCH (09:18)
[2018-12-26] MEDS: ASPIRIN EC 81 MG TABLET PO SCH (09:18)
[2018-12-26] MEDS: POTASSIUM CHLORIDE 10 MEQ TABLET PO SCH (09:18)
[2018-12-26] MEDS: MULTIVITAMIN (BEROCCA) TABLET PO SCH (09:18)
[2018-12-26] MEDS: PANTOPRAZOLE 40 MG TABLET PO SCH (09:18)
[2018-12-26] MEDS: PREGABALIN 75 MG CAPSULE PO SCH (09:18)
[2018-12-26] MEDS: NABUMETONE 500 MG TABLET PO SCH (09:19)
[2018-12-26] MEDS: DOCUSATE SODIUM 100 MG CAPSULE PO SCH (09:19)
[2018-12-26] MEDS ORDERED: BISACODYL 5 MG TABLET PO ONE (12:00)
[2018-12-26] MEDS ORDERED: POLYETHYLENE GLYCOL POWDER 255 GM BOTTLE PO ONE (15:00)
[2018-12-26] MEDS: MENTHOL/ZINC OXIDE OINT 71 GM JAR TOP SCH (15:44)
[2018-12-27] MEDS: NIACIN 500 MG TABLET PO SCH ×2 (01:08→21:23)
[2018-12-27] MEDS: POTASSIUM PHOS/SOD PHOS 250 MG TABLET PO SCH ×4 (01:08→21:22)
[2018-12-27] MEDS: DIPYRIDAMOLE 25 MG TABLET PO SCH ×3 (01:08→21:23)
[2018-12-27] MEDS: NABUMETONE 500 MG TABLET PO SCH ×3 (01:08→21:23)
[2018-12-27] MEDS: SIMVASTATIN 20 MG TABLET PO SCH ×2 (01:09→21:23)
[2018-12-27] MEDS: POTASSIUM CHLORIDE 10 MEQ TABLET PO SCH ×3 (01:09→21:22)
[2018-12-27] MEDS: PREGABALIN 75 MG CAPSULE PO SCH ×3 (01:09→21:22)
[2018-12-27] MEDS: MEMANTINE 10 MG TABLET PO SCH ×3 (01:09→21:23)
[2018-12-27] MEDS: DONEPEZIL 10 MG TABLET PO SCH ×2 (01:10→21:29)
[2018-12-27] MEDS: CARBOXYMETHYLCELLULOSE 1% OPH SOLN BOTH EYES SCH ×3 (01:10→21:23)
[2018-12-27] MEDS: metroNIDAZOLE INJ 500 MG in PREMIX 1 EACH IV SCH ×3 (01:20→17:30)
[2018-12-27] MEDS: MENTHOL/ZINC OXIDE OINT 71 GM JAR TOP SCH ×3 (01:45→21:27)
[2018-12-27] MEDS: DOCUSATE SODIUM 100 MG CAPSULE PO SCH ×3 (01:46→21:24)
[2018-12-27 05:05] LABS: INR 2.3
[2018-12-27 05:06] LABS: PT Patient Result 25.2 SECS (9.6-12.2)
[2018-12-27 05:10] LABS: Basophils % 0.4 % (0.0-0.8); Eosinophils # 0.1 10*3/uL (0.0-0.87); Eosinophils % 0.7 % (0.00-10.9); Hematocrit 31.4 VOL% (42.0-52.0); Hemoglobin 10.4 GM/DL (14.0-18.0); Immature Granulocytes % 0.6 %; Immature Granulocytes Absolute 0.04 #; Lymphocytes # 1.4 10*3/uL (1.4-4.0); Lymphocytes % 20.8 % (21.2-54.2); Mean Corpuscular HGB Conc 33.1 GM/DL (32-36); Mean Corpuscular Volume 99.1 FL (87-102); Mean Platelet Volume 10.5 FL (9.6-12.0); Monocytes % 13.3 % (1.7-12.7); Neutrophils % 64.2 % (38.7-73.9); Platelet Count 222 T/CUMM (130-400); Red Blood Count 3.17 MC/CUMM (3.8-5.5); Red Cell Distribution Width 16.8 % (9.3-17.3); White Blood Count 6.9 T/CUMM (4-12)
[2018-12-27 05:22] LABS: Albumin 1.9 G/DL (3.4-5.0); Bilirubin,Total 0.5 MG/DL (0.2-1.0); Calcium 8.4 MG/DL (8.5-10.1); Osmolality,Calculated 276.4 MOS/KG (273-304); Total Protein 5.7 G/DL (6.4-8.3)
[2018-12-27] MEDS: SODIUM CHLOR 0.9% KCL 20 MEQ 20 MEQ/1,000 ML BAG IV SCH ×2 (05:46→21:20)
[2018-12-27] MEDS ORDERED: LACTATED RINGERS 1,000 ML IV SCH (08:00)
[2018-12-27 09:14] LABS: INR 1.8; PT Patient Result 19.4 SECS (9.6-12.2)
[2018-12-27] MEDS ORDERED: LIDOCAINE 1% 5 ML VIAL ONE (13:43)
[2018-12-27] MEDS ORDERED: PROPOFOL 200 MG/20 ML VIAL IV ONE (13:43)
[2018-12-27] MEDS: MULTIVITAMIN (BEROCCA) TABLET PO SCH (15:20)
[2018-12-27] MEDS: ASPIRIN EC 81 MG TABLET PO SCH (15:20)
[2018-12-27] MEDS: INDAPAMIDE 2.5 MG TABLET PO SCH (15:21)
[2018-12-27] MEDS: DULoxetine 30 MG CAPSULE PO SCH (15:21)
[2018-12-27] MEDS: CITALOPRAM 20 MG TABLET PO SCH (15:21)
[2018-12-27] MEDS: PANTOPRAZOLE 40 MG TABLET PO SCH (15:22)
[2018-12-27] MEDS: ACYCLOVIR 200 MG CAPSULE PO SCH (15:22)
[2018-12-27] MEDS: ONDANSETRON 4 MG/2 ML VIAL IV PRN (22:16)
[2018-12-28] MEDS: metroNIDAZOLE INJ 500 MG in PREMIX 1 EACH IV SCH ×3 (01:38→17:33)
[2018-12-28 05:07] LABS: Basophils % 0.1 % (0.0-0.8); Eosinophils % 0.5 % (0.00-10.9); Hematocrit 22.9 VOL% (42.0-52.0); Hemoglobin 7.8 GM/DL (14.0-18.0); Immature Granulocytes % 0.5 %; Immature Granulocytes Absolute 0.04 #; Lymphocytes # 1.5 10*3/uL (1.4-4.0); Lymphocytes % 20.7 % (21.2-54.2); Mean Corpuscular HGB Conc 34.1 GM/DL (32-36); Mean Corpuscular Volume 97.9 FL (87-102); Mean Platelet Volume 10.4 FL (9.6-12.0); Monocytes % 7.9 % (1.7-12.7); Neutrophils % 70.3 % (38.7-73.9); Platelet Count 272 T/CUMM (130-400); Red Blood Count 2.34 MC/CUMM (3.8-5.5); Red Cell Distribution Width 17.2 % (9.3-17.3); White Blood Count 7.3 T/CUMM (4-12)
[2018-12-28 05:19] LABS: Calcium 8.4 MG/DL (8.5-10.1); Osmolality,Calculated 278.3 MOS/KG (273-304)
[2018-12-28] MEDS: SODIUM CHLOR 0.9% KCL 20 MEQ 20 MEQ/1,000 ML BAG IV SCH ×3 (06:55→17:33)
[2018-12-28] MEDS: ONDANSETRON 4 MG/2 ML VIAL IV PRN ×2 (08:39→21:21)
[2018-12-28] MEDS: DIPYRIDAMOLE 25 MG TABLET PO SCH ×2 (08:44→21:24)
[2018-12-28] MEDS: ACYCLOVIR 200 MG CAPSULE PO SCH (08:44)
[2018-12-28] MEDS: DULoxetine 30 MG CAPSULE PO SCH (08:45)
[2018-12-28] MEDS: PREGABALIN 75 MG CAPSULE PO SCH ×2 (08:45→21:24)
[2018-12-28] MEDS: CARBOXYMETHYLCELLULOSE 1% OPH SOLN BOTH EYES SCH ×2 (08:45→21:22)
[2018-12-28] MEDS: PANTOPRAZOLE 40 MG TABLET PO SCH (08:45)
[2018-12-28] MEDS: MULTIVITAMIN (BEROCCA) TABLET PO SCH (08:45)
[2018-12-28] MEDS: POTASSIUM CHLORIDE 10 MEQ TABLET PO SCH ×2 (08:45→21:23)
[2018-12-28] MEDS: CITALOPRAM 20 MG TABLET PO SCH (08:45)
[2018-12-28] MEDS: MEMANTINE 10 MG TABLET PO SCH ×2 (08:45→21:24)
[2018-12-28] MEDS: INDAPAMIDE 2.5 MG TABLET PO SCH (08:46)
[2018-12-28] MEDS: NABUMETONE 500 MG TABLET PO SCH ×2 (08:46→21:24)
[2018-12-28] MEDS: ASPIRIN EC 81 MG TABLET PO SCH (08:46)
[2018-12-28] MEDS: DOCUSATE SODIUM 100 MG CAPSULE PO SCH ×2 (08:48→22:22)
[2018-12-28] MEDS: MENTHOL/ZINC OXIDE OINT 71 GM JAR TOP SCH ×2 (09:12→22:22)
[2018-12-28] MEDS: POTASSIUM PHOS/SOD PHOS 250 MG TABLET PO SCH ×4 (09:17→22:22)
[2018-12-28] MEDS: MAGNESIUM SULF RIDER 2 GM in PREMIX 1 EACH IV PRN (10:18)
[2018-12-28] MEDS: METOPROLOL TARTRATE 25 MG TABLET PO SCH ×2 (14:55→21:24)
[2018-12-28] MEDS: methylPREDNISolone SOD SUC 40 MG/1 ML VIAL IV SCH ×2 (14:55→21:33)
[2018-12-28] MEDS: DONEPEZIL 10 MG TABLET PO SCH (21:23)
[2018-12-28] MEDS: SIMVASTATIN 20 MG TABLET PO SCH (21:24)
[2018-12-28] MEDS: NIACIN 500 MG TABLET PO SCH (21:24)
[2018-12-29] MEDS: metroNIDAZOLE INJ 500 MG in PREMIX 1 EACH IV SCH ×3 (02:33→20:00)
[2018-12-29 05:22] LABS: Hematocrit 21.6 VOL% (42.0-52.0); Hemoglobin 7.3 GM/DL (14.0-18.0); Immature Granulocytes % 0.8 %; Immature Granulocytes Absolute 0.04 #; Lymphocytes # 0.8 10*3/uL (1.4-4.0); Lymphocytes % 15.5 % (21.2-54.2); Mean Corpuscular HGB Conc 33.8 GM/DL (32-36); Mean Corpuscular Volume 97.7 FL (87-102); Neutrophils % 82.7 % (38.7-73.9); Platelet Count 281 T/CUMM (130-400); Red Blood Count 2.21 MC/CUMM (3.8-5.5); White Blood Count 5.2 T/CUMM (4-12)
[2018-12-29] MEDS: SODIUM CHLOR 0.9% KCL 20 MEQ 20 MEQ/1,000 ML BAG IV SCH ×3 (05:26→18:38)
[2018-12-29 05:48] LABS: Albumin 1.8 G/DL (3.4-5.0); Bilirubin,Total 0.5 MG/DL (0.2-1.0); Calcium 8.4 MG/DL (8.5-10.1); Osmolality,Calculated 285.3 MOS/KG (273-304); Total Protein 5.6 G/DL (6.4-8.3)
[2018-12-29] MEDS: methylPREDNISolone SOD SUC 40 MG/1 ML VIAL IV SCH ×3 (05:56→21:30)
[2018-12-29] MEDS ORDERED: SODIUM CHLORIDE 0.9% 1,000 ML IV PRN (07:44)
[2018-12-29] MEDS: CITALOPRAM 20 MG TABLET PO SCH (08:49)
[2018-12-29] MEDS: ACYCLOVIR 200 MG CAPSULE PO SCH (08:49)
[2018-12-29] MEDS: MEMANTINE 10 MG TABLET PO SCH ×2 (08:49→21:31)
[2018-12-29] MEDS: PANTOPRAZOLE 40 MG TABLET PO SCH (08:49)
[2018-12-29] MEDS: PREGABALIN 75 MG CAPSULE PO SCH ×2 (08:49→21:31)
[2018-12-29] MEDS: ASPIRIN EC 81 MG TABLET PO SCH (08:49)
[2018-12-29] MEDS: POTASSIUM PHOS/SOD PHOS 250 MG TABLET PO SCH ×4 (08:49→22:18)
[2018-12-29] MEDS: DIPYRIDAMOLE 25 MG TABLET PO SCH ×2 (08:49→22:18)
[2018-12-29] MEDS: MULTIVITAMIN (BEROCCA) TABLET PO SCH (08:49)
[2018-12-29] MEDS: DULoxetine 30 MG CAPSULE PO SCH (08:49)
[2018-12-29] MEDS: POTASSIUM CHLORIDE 10 MEQ TABLET PO SCH ×2 (08:49→21:31)
[2018-12-29] MEDS: NABUMETONE 500 MG TABLET PO SCH ×2 (08:50→22:19)
[2018-12-29] MEDS: METOPROLOL TARTRATE 25 MG TABLET PO SCH ×2 (08:50→21:31)
[2018-12-29] MEDS: INDAPAMIDE 2.5 MG TABLET PO SCH (08:50)
[2018-12-29] MEDS: CARBOXYMETHYLCELLULOSE 1% OPH SOLN BOTH EYES SCH ×2 (08:50→22:21)
[2018-12-29] MEDS ORDERED: FUROSEMIDE 20 MG/2 ML VIAL IV ONE (10:30)
[2018-12-29] MEDS: MENTHOL/ZINC OXIDE OINT 71 GM JAR TOP SCH ×2 (10:34→22:27)
[2018-12-29] MEDS: DOCUSATE SODIUM 100 MG CAPSULE PO SCH ×2 (10:34→20:02)
[2018-12-29] MEDS: MAGNESIUM SULF RIDER 2 GM in PREMIX 1 EACH IV PRN (13:35)
[2018-12-29] MEDS: SIMVASTATIN 20 MG TABLET PO SCH (21:31)
[2018-12-29] MEDS: DONEPEZIL 10 MG TABLET PO SCH (21:32)
[2018-12-29] MEDS: NIACIN 500 MG TABLET PO SCH (22:31)
[2018-12-30] MEDS: metroNIDAZOLE INJ 500 MG in PREMIX 1 EACH IV SCH ×2 (03:36→10:46)
[2018-12-30 05:14] LABS: Basophils % 0.2 % (0.0-0.8); Hematocrit 32.2 VOL% (42.0-52.0); Immature Granulocytes % 0.8 %; Lymphocytes # 0.9 10*3/uL (1.4-4.0); Lymphocytes % 6.9 % (21.2-54.2); Mean Corpuscular HGB Conc 33.9 GM/DL (32-36); Mean Corpuscular Volume 91.7 FL (87-102); Mean Platelet Volume 9.9 FL (9.6-12.0); Monocytes % 1.5 % (1.7-12.7); Neutrophils % 90.6 % (38.7-73.9); Platelet Count 265 T/CUMM (130-400); Red Blood Count 3.51 MC/CUMM (3.8-5.5); Red Cell Distribution Width 18.5 % (9.3-17.3); White Blood Count 12.4 T/CUMM (4-12)
[2018-12-30 05:15] LABS: Hemoglobin 10.9 GM/DL (14.0-18.0)
[2018-12-30 05:44] LABS: Calcium 8.1 MG/DL (8.5-10.1)
[2018-12-30 05:45] LABS: Lymphocytes 4 % (20-55); Platelet Estimate Adequate; Polychromasia Few; Segmented Neutrophils 96 % (50-85); Total Cells Counted 100
[2018-12-30] MEDS: methylPREDNISolone SOD SUC 40 MG/1 ML VIAL IV SCH ×3 (07:15→23:43)
[2018-12-30] MEDS: PREGABALIN 75 MG CAPSULE PO SCH ×2 (10:15→20:39)
[2018-12-30] MEDS: POTASSIUM CHLORIDE 10 MEQ TABLET PO SCH ×2 (10:17→20:39)
[2018-12-30] MEDS: DULoxetine 30 MG CAPSULE PO SCH (10:17)
[2018-12-30] MEDS: ACYCLOVIR 200 MG CAPSULE PO SCH (10:17)
[2018-12-30] MEDS: MEMANTINE 10 MG TABLET PO SCH ×2 (10:17→20:39)
[2018-12-30] MEDS: ASPIRIN EC 81 MG TABLET PO SCH (10:17)
[2018-12-30] MEDS: MULTIVITAMIN (BEROCCA) TABLET PO SCH (10:17)
[2018-12-30] MEDS: DOCUSATE SODIUM 100 MG CAPSULE PO SCH ×2 (10:18→20:40)
[2018-12-30] MEDS: INDAPAMIDE 2.5 MG TABLET PO SCH (10:18)
[2018-12-30] MEDS: METOPROLOL TARTRATE 25 MG TABLET PO SCH ×2 (10:19→20:39)
[2018-12-30] MEDS: PANTOPRAZOLE 40 MG TABLET PO SCH (10:19)
[2018-12-30] MEDS: CITALOPRAM 20 MG TABLET PO SCH (10:20)
[2018-12-30] MEDS: POTASSIUM PHOS/SOD PHOS 250 MG TABLET PO SCH ×4 (10:20→20:39)
[2018-12-30] MEDS: MENTHOL/ZINC OXIDE OINT 71 GM JAR TOP SCH ×2 (10:29→20:40)
[2018-12-30] MEDS: NABUMETONE 500 MG TABLET PO SCH ×2 (10:45→20:39)
[2018-12-30] MEDS: SODIUM CHLOR 0.9% KCL 20 MEQ 20 MEQ/1,000 ML BAG IV SCH ×5 (10:57→23:44)
[2018-12-30] MEDS: CARBOXYMETHYLCELLULOSE 1% OPH SOLN BOTH EYES SCH ×2 (11:00→20:39)
[2018-12-30] MEDS: DIPYRIDAMOLE 25 MG TABLET PO SCH ×2 (11:00→20:38)
[2018-12-30] MEDS: NIACIN 500 MG TABLET PO SCH (20:38)
[2018-12-30] MEDS: ACETAMINOPHEN 325 MG TABLET PO PRN (20:38)
[2018-12-30] MEDS: DONEPEZIL 10 MG TABLET PO SCH (20:39)
[2018-12-30] MEDS: SIMVASTATIN 20 MG TABLET PO SCH (20:39)
[2018-12-31 05:14] LABS: Basophils % 0.1 % (0.0-0.8); Hematocrit 32.8 VOL% (42.0-52.0); Hemoglobin 11.3 GM/DL (14.0-18.0); Immature Granulocytes % 0.5 %; Immature Granulocytes Absolute 0.06 #; Lymphocytes # 0.6 10*3/uL (1.4-4.0); Lymphocytes % 4.5 % (21.2-54.2); Mean Corpuscular HGB Conc 34.5 GM/DL (32-36); Mean Corpuscular Volume 92.7 FL (87-102); Mean Platelet Volume 10.5 FL (9.6-12.0); Monocytes % 1.9 % (1.7-12.7); Platelet Count 274 T/CUMM (130-400); Red Blood Count 3.54 MC/CUMM (3.8-5.5); Red Cell Distribution Width 18.4 % (9.3-17.3); White Blood Count 12.3 T/CUMM (4-12)
[2018-12-31 05:39] LABS: Hypochromasia 1+; Lymphocytes 2 % (20-55); Segmented Neutrophils 96 % (50-85); Total Cells Counted 100
[2018-12-31 05:40] LABS: Anisocytosis 1+; Microcytosis 1+; Polychromasia Slight
[2018-12-31 05:42] LABS: Calcium 8.3 MG/DL (8.5-10.1); Osmolality,Calculated 292.8 MOS/KG (273-304)
[2018-12-31] MEDS: methylPREDNISolone SOD SUC 40 MG/1 ML VIAL IV SCH ×4 (05:46→23:00)
[2018-12-31] MEDS: SODIUM CHLOR 0.9% KCL 20 MEQ 20 MEQ/1,000 ML BAG IV SCH ×2 (05:47→11:07)
[2018-12-31] MEDS: ASPIRIN EC 81 MG TABLET PO SCH (10:33)
[2018-12-31] MEDS: PREGABALIN 75 MG CAPSULE PO SCH ×2 (10:33→21:11)
[2018-12-31] MEDS: ACYCLOVIR 200 MG CAPSULE PO SCH (10:33)
[2018-12-31] MEDS: MEMANTINE 10 MG TABLET PO SCH ×2 (10:34→21:12)
[2018-12-31] MEDS: POTASSIUM CHLORIDE 10 MEQ TABLET PO SCH ×2 (10:34→20:09)
[2018-12-31] MEDS: CITALOPRAM 20 MG TABLET PO SCH (10:34)
[2018-12-31] MEDS: PANTOPRAZOLE 40 MG TABLET PO SCH (10:34)
[2018-12-31] MEDS: MULTIVITAMIN (BEROCCA) TABLET PO SCH (10:35)
[2018-12-31] MEDS: INDAPAMIDE 2.5 MG TABLET PO SCH (10:35)
[2018-12-31] MEDS: POTASSIUM PHOS/SOD PHOS 250 MG TABLET PO SCH ×4 (10:35→21:11)
[2018-12-31] MEDS: DULoxetine 30 MG CAPSULE PO SCH (10:35)
[2018-12-31] MEDS: METOPROLOL TARTRATE 25 MG TABLET PO SCH ×2 (10:36→21:11)
[2018-12-31] MEDS: DIPYRIDAMOLE 25 MG TABLET PO SCH ×2 (10:36→21:11)
[2018-12-31] MEDS: NABUMETONE 500 MG TABLET PO SCH ×2 (10:36→21:11)
[2018-12-31] MEDS: CARBOXYMETHYLCELLULOSE 1% OPH SOLN BOTH EYES SCH ×2 (10:41→21:11)
[2018-12-31] MEDS: DOCUSATE SODIUM 100 MG CAPSULE PO SCH ×2 (10:44→20:09)
[2018-12-31] MEDS: MENTHOL/ZINC OXIDE OINT 71 GM JAR TOP SCH ×2 (10:44→21:12)
[2018-12-31] MEDS: MAGNESIUM SULF RIDER 2 GM in PREMIX 1 EACH IV PRN (10:45)
[2018-12-31] MEDS: NIACIN 500 MG TABLET PO SCH (21:10)
[2018-12-31] MEDS: SIMVASTATIN 20 MG TABLET PO SCH (21:11)
[2018-12-31] MEDS: DONEPEZIL 10 MG TABLET PO SCH (21:11)
[2019-01-01] MEDS: SODIUM CHLOR 0.9% KCL 20 MEQ 20 MEQ/1,000 ML BAG IV SCH (02:58)
[2019-01-01 05:39] LABS: Basophils % 0.1 % (0.0-0.8); Hematocrit 33.8 VOL% (42.0-52.0); Hemoglobin 11.7 GM/DL (14.0-18.0); Immature Granulocytes % 0.5 %; Immature Granulocytes Absolute 0.06 #; Lymphocytes # 0.5 10*3/uL (1.4-4.0); Lymphocytes % 4.1 % (21.2-54.2); Mean Corpuscular HGB Conc 34.6 GM/DL (32-36); Mean Corpuscular Volume 91.8 FL (87-102); Mean Platelet Volume 10.5 FL (9.6-12.0); Monocytes % 2.5 % (1.7-12.7); Neutrophils % 92.8 % (38.7-73.9); Platelet Count 265 T/CUMM (130-400); Red Blood Count 3.68 MC/CUMM (3.8-5.5); Red Cell Distribution Width 17.9 % (9.3-17.3); White Blood Count 12.4 T/CUMM (4-12)
[2019-01-01 06:04] LABS: Lymphocytes 3 % (20-55); Platelet Estimate Adequate; Segmented Neutrophils 95 % (50-85); Total Cells Counted 100
[2019-01-01 06:05] LABS: Hypochromasia 1+
[2019-01-01 06:07] LABS: Calcium 7.9 MG/DL (8.5-10.1); Osmolality,Calculated 286.4 MOS/KG (273-304)
[2019-01-01] MEDS: methylPREDNISolone SOD SUC 40 MG/1 ML VIAL IV SCH ×3 (06:41→21:02)
[2019-01-01] MEDS: PREGABALIN 75 MG CAPSULE PO SCH ×2 (08:48→21:02)
[2019-01-01] MEDS: CARBOXYMETHYLCELLULOSE 1% OPH SOLN BOTH EYES SCH ×2 (08:48→21:02)
[2019-01-01] MEDS: CITALOPRAM 20 MG TABLET PO SCH (08:49)
[2019-01-01] MEDS: ASPIRIN EC 81 MG TABLET PO SCH (08:49)
[2019-01-01] MEDS: DULoxetine 30 MG CAPSULE PO SCH (08:49)
[2019-01-01] MEDS: DIPYRIDAMOLE 25 MG TABLET PO SCH ×2 (08:49→21:04)
[2019-01-01] MEDS: ACYCLOVIR 200 MG CAPSULE PO SCH (08:49)
[2019-01-01] MEDS: PANTOPRAZOLE 40 MG TABLET PO SCH (08:49)
[2019-01-01] MEDS: NABUMETONE 500 MG TABLET PO SCH ×2 (08:49→21:02)
[2019-01-01] MEDS: INDAPAMIDE 2.5 MG TABLET PO SCH (08:49)
[2019-01-01] MEDS: MEMANTINE 10 MG TABLET PO SCH ×2 (08:49→21:03)
[2019-01-01] MEDS: MULTIVITAMIN (BEROCCA) TABLET PO SCH (08:50)
[2019-01-01] MEDS: POTASSIUM CHLORIDE 10 MEQ TABLET PO SCH ×2 (08:50→21:03)
[2019-01-01] MEDS: POTASSIUM PHOS/SOD PHOS 250 MG TABLET PO SCH ×4 (08:50→21:03)
[2019-01-01] MEDS: METOPROLOL TARTRATE 25 MG TABLET PO SCH ×2 (08:50→21:02)
[2019-01-01] MEDS: cefTRIAXone 1,000 MG in SYRINGE 1 EACH IV SCH (08:53)
[2019-01-01] MEDS: MENTHOL/ZINC OXIDE OINT 71 GM JAR TOP SCH ×2 (09:03→21:03)
[2019-01-01] MEDS: DOCUSATE SODIUM 100 MG CAPSULE PO SCH ×2 (09:04→21:03)
[2019-01-01] MEDS: NIACIN 500 MG TABLET PO SCH (21:02)
[2019-01-01] MEDS: SIMVASTATIN 20 MG TABLET PO SCH (21:03)
[2019-01-01] MEDS: DONEPEZIL 10 MG TABLET PO SCH (21:03)
[2019-01-02] MEDS: cefTRIAXone 1,000 MG in SYRINGE 1 EACH IV SCH (08:56)
[2019-01-02] MEDS: PREGABALIN 75 MG CAPSULE PO SCH ×2 (08:57→22:17)
[2019-01-02] MEDS: CITALOPRAM 20 MG TABLET PO SCH (08:57)
[2019-01-02] MEDS: DIPYRIDAMOLE 25 MG TABLET PO SCH ×2 (08:58→22:17)
[2019-01-02] MEDS: POTASSIUM PHOS/SOD PHOS 250 MG TABLET PO SCH ×4 (08:58→22:15)
[2019-01-02] MEDS: INDAPAMIDE 2.5 MG TABLET PO SCH (08:59)
[2019-01-02] MEDS: MEMANTINE 10 MG TABLET PO SCH ×2 (08:59→22:17)
[2019-01-02] MEDS: ACYCLOVIR 200 MG CAPSULE PO SCH (08:59)
[2019-01-02] MEDS: ACETAMINOPHEN 325 MG TABLET PO PRN (09:00)
[2019-01-02] MEDS: POTASSIUM CHLORIDE 10 MEQ TABLET PO SCH ×2 (09:00→22:15)
[2019-01-02] MEDS: NABUMETONE 500 MG TABLET PO SCH ×2 (09:01→22:16)
[2019-01-02] MEDS: METOPROLOL TARTRATE 25 MG TABLET PO SCH ×2 (09:01→22:16)
[2019-01-02] MEDS: PANTOPRAZOLE 40 MG TABLET PO SCH (09:01)
[2019-01-02] MEDS: MULTIVITAMIN (BEROCCA) TABLET PO SCH (09:01)
[2019-01-02] MEDS: DULoxetine 30 MG CAPSULE PO SCH (09:01)
[2019-01-02] MEDS: ASPIRIN EC 81 MG TABLET PO SCH (09:02)
[2019-01-02] MEDS: methylPREDNISolone SOD SUC 40 MG/1 ML VIAL IM SCH ×2 (09:02→19:09)
[2019-01-02] MEDS: CARBOXYMETHYLCELLULOSE 1% OPH SOLN BOTH EYES SCH ×2 (09:02→22:14)
[2019-01-02] MEDS: MENTHOL/ZINC OXIDE OINT 71 GM JAR TOP SCH ×2 (09:03→23:54)
[2019-01-02] MEDS: DOCUSATE SODIUM 100 MG CAPSULE PO SCH ×2 (09:03→22:14)
[2019-01-02] MEDS: ALBUTEROL 2.5 MG/3 ML NEB RESP TX PRN ×2 (10:28→19:22)
[2019-01-02] MEDS: SODIUM CHLOR 0.9% KCL 20 MEQ 20 MEQ/1,000 ML BAG IV SCH ×2 (10:48)
[2019-01-02] MEDS: MEGESTROL 400 MG/10 ML UDCUP PO SCH ×2 (12:23→22:18)
[2019-01-02] MEDS: MAGNESIUM SULF RIDER 2 GM in PREMIX 1 EACH IV PRN (19:09)
[2019-01-02] MEDS: NIACIN 500 MG TABLET PO SCH (22:16)
[2019-01-02] MEDS: SIMVASTATIN 20 MG TABLET PO SCH (22:17)
[2019-01-02] MEDS: DONEPEZIL 10 MG TABLET PO SCH (22:17)
[2019-01-03] MEDS: methylPREDNISolone SOD SUC 40 MG/1 ML VIAL IM SCH ×3 (00:02→16:32)
[2019-01-03] MEDS: ZINC OXIDE PASTE 113 GM TUBE TOP PRN ×2 (00:03→23:00)
[2019-01-03 04:55] LABS: Basophils % 0.1 % (0.0-0.8); Hematocrit 31.5 VOL% (42.0-52.0); Hemoglobin 10.8 GM/DL (14.0-18.0); Immature Granulocytes % 0.5 %; Immature Granulocytes Absolute 0.05 #; Lymphocytes # 0.3 10*3/uL (1.4-4.0); Lymphocytes % 2.6 % (21.2-54.2); Mean Corpuscular HGB Conc 34.3 GM/DL (32-36); Mean Corpuscular Volume 93.2 FL (87-102); Mean Platelet Volume 10.7 FL (9.6-12.0); Monocytes % 1.5 % (1.7-12.7); Neutrophils % 95.3 % (38.7-73.9); Platelet Count 219 T/CUMM (130-400); Red Blood Count 3.38 MC/CUMM (3.8-5.5); Red Cell Distribution Width 17.8 % (9.3-17.3); White Blood Count 10.9 T/CUMM (4-12)
[2019-01-03 05:32] LABS: Albumin 2.2 G/DL (3.4-5.0); Calcium 8.3 MG/DL (8.5-10.1); Osmolality,Calculated 290.4 MOS/KG (273-304); Total Protein 5.6 G/DL (6.4-8.3)
[2019-01-03 05:34] LABS: Atypical Lymphocytes Few; Hypochromasia 1+; Lymphocytes 5 % (20-55); Microcytosis 1+; Segmented Neutrophils 92 % (50-85); Target Cells Slight; Total Cells Counted 100
[2019-01-03 05:35] LABS: Platelet Estimate Normal
[2019-01-03] MEDS: cefTRIAXone 1,000 MG in SYRINGE 1 EACH IV SCH (08:04)
[2019-01-03] MEDS: DULoxetine 30 MG CAPSULE PO SCH (08:10)
[2019-01-03] MEDS: CARBOXYMETHYLCELLULOSE 1% OPH SOLN BOTH EYES SCH ×2 (08:10→22:00)
[2019-01-03] MEDS: DOCUSATE SODIUM 100 MG CAPSULE PO SCH ×2 (08:11→22:58)
[2019-01-03] MEDS: POTASSIUM CHLORIDE 10 MEQ TABLET PO SCH ×2 (08:11→22:00)
[2019-01-03] MEDS: CITALOPRAM 20 MG TABLET PO SCH (08:11)
[2019-01-03] MEDS: PREGABALIN 75 MG CAPSULE PO SCH ×2 (08:11→21:59)
[2019-01-03] MEDS: METOPROLOL TARTRATE 25 MG TABLET PO SCH ×2 (08:11→22:00)
[2019-01-03] MEDS: PANTOPRAZOLE 40 MG TABLET PO SCH (08:11)
[2019-01-03] MEDS: INDAPAMIDE 2.5 MG TABLET PO SCH (08:11)
[2019-01-03] MEDS: POTASSIUM PHOS/SOD PHOS 250 MG TABLET PO SCH ×4 (08:12→21:59)
[2019-01-03] MEDS: DIPYRIDAMOLE 25 MG TABLET PO SCH ×2 (08:12→22:00)
[2019-01-03] MEDS: MEGESTROL 400 MG/10 ML UDCUP PO SCH ×2 (08:12→22:00)
[2019-01-03] MEDS: ASPIRIN EC 81 MG TABLET PO SCH (08:12)
[2019-01-03] MEDS: MEMANTINE 10 MG TABLET PO SCH ×2 (08:12→22:00)
[2019-01-03] MEDS: NABUMETONE 500 MG TABLET PO SCH ×2 (09:21→21:59)
[2019-01-03] MEDS: MENTHOL/ZINC OXIDE OINT 71 GM JAR TOP SCH ×2 (09:21→22:59)
[2019-01-03] MEDS: ACYCLOVIR 200 MG CAPSULE PO SCH (09:21)
[2019-01-03] MEDS: MULTIVITAMIN (BEROCCA) TABLET PO SCH (09:21)
[2019-01-03] MEDS ORDERED: DIGOXIN 0.5 MG/2 ML AMP IV ONE (11:31)
[2019-01-03] MEDS ORDERED: METOPROLOL TARTRATE 25 MG TABLET PO ONE (11:36)
[2019-01-03] MEDS: SODIUM CHLOR 0.9% KCL 20 MEQ 20 MEQ/1,000 ML BAG IV SCH (12:00)
[2019-01-03] MEDS: ASCORBIC ACID 500 MG TABLET PO SCH ×2 (12:35→22:00)
[2019-01-03] MEDS: SODIUM CHLORIDE 0.45% 1,000 ML IV SCH ×2 (12:36→14:22)
[2019-01-03] MEDS: DONEPEZIL 10 MG TABLET PO SCH (21:59)
[2019-01-03] MEDS: NIACIN 500 MG TABLET PO SCH (21:59)
[2019-01-04] MEDS: ALBUTEROL 2.5 MG/3 ML NEB RESP TX PRN (00:15)
[2019-01-04] MEDS: methylPREDNISolone SOD SUC 40 MG/1 ML VIAL IM SCH ×4 (00:40→21:42)
[2019-01-04] MEDS: ACETAMINOPHEN 325 MG TABLET PO PRN ×2 (05:49→21:43)
[2019-01-04 05:55] LABS: Basophils % 0.1 % (0.0-0.8); Hematocrit 31.6 VOL% (42.0-52.0); Hemoglobin 10.9 GM/DL (14.0-18.0); Immature Granulocytes % 0.4 %; Immature Granulocytes Absolute 0.05 #; Lymphocytes # 0.2 10*3/uL (1.4-4.0); Lymphocytes % 1.6 % (21.2-54.2); Mean Corpuscular HGB Conc 34.5 GM/DL (32-36); Mean Corpuscular Volume 92.1 FL (87-102); Mean Platelet Volume 10.9 FL (9.6-12.0); Monocytes % 2.9 % (1.7-12.7); Platelet Count 224 T/CUMM (130-400); Red Blood Count 3.43 MC/CUMM (3.8-5.5); Red Cell Distribution Width 17.6 % (9.3-17.3); White Blood Count 11.8 T/CUMM (4-12)
[2019-01-04 06:16] LABS: Calcium 8.3 MG/DL (8.5-10.1); Osmolality,Calculated 283.7 MOS/KG (273-304)
[2019-01-04 06:18] LABS: Lymphocytes 1 % (20-55); Segmented Neutrophils 94 % (50-85); Total Cells Counted 100
[2019-01-04 06:19] LABS: Hypochromasia 1+; Microcytosis 1+; Ovalocytes Slight; Platelet Estimate Adequate
[2019-01-04] MEDS: MEMANTINE 10 MG TABLET PO SCH ×2 (09:12→21:43)
[2019-01-04] MEDS: ASPIRIN EC 81 MG TABLET PO SCH (09:12)
[2019-01-04] MEDS: DOCUSATE SODIUM 100 MG CAPSULE PO SCH ×2 (09:12→21:44)
[2019-01-04] MEDS: MULTIVITAMIN (BEROCCA) TABLET PO SCH (09:12)
[2019-01-04] MEDS: POTASSIUM PHOS/SOD PHOS 250 MG TABLET PO SCH ×4 (09:12→21:43)
[2019-01-04] MEDS: DULoxetine 30 MG CAPSULE PO SCH (09:12)
[2019-01-04] MEDS: POTASSIUM CHLORIDE 10 MEQ TABLET PO SCH ×2 (09:13→21:43)
[2019-01-04] MEDS: ACYCLOVIR 200 MG CAPSULE PO SCH (09:13)
[2019-01-04] MEDS: METOPROLOL TARTRATE 25 MG TABLET PO SCH ×2 (09:13→21:43)
[2019-01-04] MEDS: PANTOPRAZOLE 40 MG TABLET PO SCH (09:13)
[2019-01-04] MEDS: cefTRIAXone 1,000 MG in SYRINGE 1 EACH IV SCH (09:13)
[2019-01-04] MEDS: ASCORBIC ACID 500 MG TABLET PO SCH ×2 (09:14→21:44)
[2019-01-04] MEDS: CARBOXYMETHYLCELLULOSE 1% OPH SOLN BOTH EYES SCH ×2 (09:14→21:44)
[2019-01-04] MEDS: DIPYRIDAMOLE 25 MG TABLET PO SCH ×2 (09:14→21:44)
[2019-01-04] MEDS: MENTHOL/ZINC OXIDE OINT 71 GM JAR TOP SCH ×2 (09:15→21:44)
[2019-01-04] MEDS: SODIUM CHLOR 0.9% KCL 20 MEQ 20 MEQ/1,000 ML BAG IV SCH (12:18)
[2019-01-04] MEDS: ONDANSETRON 4 MG/2 ML VIAL IV PRN (21:42)
[2019-01-04] MEDS: NIACIN 500 MG TABLET PO SCH (21:44)
[2019-01-04] MEDS: DONEPEZIL 10 MG TABLET PO SCH (21:44)
[2019-01-05] MEDS ORDERED: HYDROmorphone 2 MG/1 ML VIAL IV ONE (00:10)
[2019-01-05] MEDS: LORazepam 2 MG/1 ML VIAL IV PRN ×2 (00:58→13:52)
[2019-01-05 05:36] LABS: Basophils % 0.1 % (0.0-0.8); Hematocrit 30.4 VOL% (42.0-52.0); Hemoglobin 10.1 GM/DL (14.0-18.0); Immature Granulocytes % 0.6 %; Immature Granulocytes Absolute 0.07 #; Lymphocytes # 0.4 10*3/uL (1.4-4.0); Lymphocytes % 3.5 % (21.2-54.2); Mean Corpuscular HGB Conc 33.2 GM/DL (32-36); Mean Corpuscular Volume 94.1 FL (87-102); Monocytes % 3.9 % (1.7-12.7); Neutrophils % 91.9 % (38.7-73.9); Platelet Count 222 T/CUMM (130-400); Red Blood Count 3.23 MC/CUMM (3.8-5.5); Red Cell Distribution Width 17.8 % (9.3-17.3)
[2019-01-05 06:04] LABS: Bilirubin,Total 5.5 MG/DL (0.2-1.0); Osmolality,Calculated 284.5 MOS/KG (273-304); Total Protein 5.1 G/DL (6.4-8.3)
[2019-01-05 06:05] LABS: Hypochromasia Slight; Lymphocytes 1 % (20-55); Platelet Estimate Adequate; Polychromasia Few; Segmented Neutrophils 97 % (50-85); Total Cells Counted 100
[2019-01-05] MEDS ORDERED: HYDROmorphone 2 MG/1 ML VIAL IV PRN (07:40)
[2019-01-05] MEDS: POTASSIUM PHOS/SOD PHOS 250 MG TABLET PO SCH ×2 (09:20→11:48)
[2019-01-05] MEDS: MENTHOL/ZINC OXIDE OINT 71 GM JAR TOP SCH (09:21)
[2019-01-05] MEDS: DOCUSATE SODIUM 100 MG CAPSULE PO SCH (09:21)
[2019-01-05] MEDS: DULoxetine 30 MG CAPSULE PO SCH (09:21)
[2019-01-05] MEDS: ASPIRIN EC 81 MG TABLET PO SCH (09:21)
[2019-01-05] MEDS: MULTIVITAMIN (BEROCCA) TABLET PO SCH (09:21)
[2019-01-05] MEDS: POTASSIUM CHLORIDE 10 MEQ TABLET PO SCH (09:22)
[2019-01-05] MEDS: METOPROLOL TARTRATE 25 MG TABLET PO SCH (09:22)
[2019-01-05] MEDS: MEMANTINE 10 MG TABLET PO SCH (09:22)
[2019-01-05] MEDS: PANTOPRAZOLE 40 MG TABLET PO SCH (09:23)
[2019-01-05] MEDS: DIPYRIDAMOLE 25 MG TABLET PO SCH (09:23)
[2019-01-05] MEDS: methylPREDNISolone SOD SUC 40 MG/1 ML VIAL IM SCH (09:24)
[2019-01-05] MEDS: ACYCLOVIR 200 MG CAPSULE PO SCH (09:24)
[2019-01-05] MEDS: ASCORBIC ACID 500 MG TABLET PO SCH (09:24)
[2019-01-05] MEDS: cefTRIAXone 1,000 MG in SYRINGE 1 EACH IV SCH (10:38)
[2019-01-05] MEDS: CARBOXYMETHYLCELLULOSE 1% OPH SOLN BOTH EYES SCH (10:38)
[2019-01-05 11:36] VITALS: BP 145/98
== END 2019-01-05 13:55 | disposition hospice, inpatient (51) | DRG 386 ==
LOC: EDBD → EDUNIT# → N.ED 18:01 → N.EDINP 22:42 → N.TELES 23:00
PROVIDERS: ADMIT Family Medicine; ATTEND Family Medicine
PROC: COLONBX (2018-12-27 12:05)

== ENCOUNTER 2019-01-05 13:58 | Inpatient (IN) ==
[2019-01-05] MEDS ORDERED: HYDROmorphone 2 MG/1 ML VIAL IV PRN (16:17)
[2019-01-05] MEDS ORDERED: LORazepam 2 MG/1 ML VIAL IV PRN (16:18)
[2019-01-05] MEDS: LORazepam 2 MG/1 ML VIAL IV PRN (19:48)
[2019-01-06] MEDS: HYDROmorphone 2 MG/1 ML VIAL IV PRN ×6 (00:54→21:38)
[2019-01-06] MEDS: LORazepam 2 MG/1 ML VIAL IV PRN ×2 (06:25→14:47)
[2019-01-06 20:42] VITALS: BP 91/66
[2019-01-06] MEDS ORDERED: ZINC OXIDE PASTE 113 GM TUBE TOP SCH (21:00)
== END 2019-01-06 23:15 | disposition expired | DRG 951 ==
LOC: N.4E 13:58
PROVIDERS: ADMIT Internal Medicine; ATTEND Internal Medicine